=== PATIENT | female | born 1945 | race Caucasian/White ===

== ENCOUNTER 2020-10-22 13:47 | Outpatient (REF) | payer MEDICARE, SELFPAY ==
--- NOTE | ~2020-10-22 | XR_ITS ---
EXAMINATION: XR KNEE, LEFT CLINICAL INFORMATION: Pain COMPARISON: None TECHNIQUE: Four views of the left knee. FINDINGS: Bone alignment is normal. No fracture or dislocation is seen. There are small osteophytes at the patellofemoral joint. The femoral tibial joint is normal.. There is a small joint effusion. XR/XR knee LT 4V IMPRESSION: Mild degenerative changes in all joint effusion.
== END 2020-10-22 13:48 | disposition home or self-care (01) ==
LOC: HO.HMGCX 13:47
PROVIDERS: PCP Internal Medicine; Visit Provider Nurse Practitioner Family
DX: M25.462 Effusion, left knee (principal); M25.562 Pain in left knee
CPT/HCPCS: 73564

== ENCOUNTER 2020-10-22 15:40 | Outpatient (REF) | payer MEDICARE, SELFPAY ==
--- NOTE | ~2020-10-22 | US_ITS ---
EXAMINATION: US VENOUS ULTRASOUND WITH DOPPLER LOWER EXTREMITY, LEFT CLINICAL INFORMATION: Left leg pain and swelling COMPARISON: None TECHNIQUE: Ultrasound of the deep veins is performed from the hip to the calf with compression sonography and color and pulse Doppler assessment. Spectral analysis with color-flow imaging is performed. FINDINGS: There is normal venous compression and respiratory variation and augmented flow. The visualized common femoral vein, superficial femoral vein, profunda femoral vein, popliteal vein, and the trifurcation region shows no evidence of deep venous thrombosis. There is a large complex fluid collection seen in the anterior medial lower thigh. There is a small knee joint effusion. There is a small slightly complex Santos's cyst measuring 3.8 x 1.7 x 1.8 cm. There is left inguinal lymphadenopathy. US/US venous duplex LE LT IMPRESSION: No DVT demonstrated in the left lower extremity. Large fluid collection in the left anterior medial lower thigh. Small left knee joint effusion and Santos's cyst. It is uncertain whether fluid collection could be related to ruptured Santos's cyst. Differential would include old liquefying hematoma, abscess and changes related to trauma. Clinical correlation recommended. This could be better evaluated with MRI of the leg if clinically indicated.
== END 2020-10-22 15:41 | disposition home or self-care (01) ==
LOC: HO.HMGCX 15:40
PROVIDERS: PCP Internal Medicine; Visit Provider Nurse Practitioner Family
DX: M79.605 Pain in left leg (principal); M79.89 Other specified soft tissue disorders
CPT/HCPCS: 93971

== ENCOUNTER 2020-12-02 07:53 | Day surgery (SDC) | payer MEDICARE, SELFPAY ==
[2020-11-25 16:39] VITALS: BMI 28.9
--- NOTE | 2020-11-28 07:47 | MHC.SHP ---
Pre-Procedural Eval Section A The patient is an INPATIENT: No The History & Physical has been completed within 30 days and I have reviewed it.: Yes Section B Chief Complaint: Left Eye Cataract Allergies: Allergies Allergy/AdvReac Type Severity Reaction Status Date / Time naproxen [Aleve] Allergy Severe throat Verified 11/25/20 16:37 swelling Plan Diagnosis/Plan: Unchanged I have reviewed the history and physical and performed a pertinent physical examination on my patient. No changes have occurred unless specified.
--- NOTE | 2020-11-29 09:43 | P.CONAN_ITS ---
Documented by User: Renata Finney 11/29/20 09:44 HPI - Anesthesia Eval Consult details Narrative: 75yo F for Left Cataract Extraction IOL Insertion PCP cleared No prev cataract on record PMFSH Active Problems Active Problems: All Active Problems (Updated 11/25/20 @ 16:42 by Mayte Garrison) Knee pain (Acute) Edema of knee (Acute) Left leg swelling (Acute) Pain in posterior left lower extremity (Acute) Knee effusion (Acute) Cataract (Acute) Hyperlipidemia (Acute) Depression (Acute) Past Medical History Medical History (Updated 11/25/20 @ 16:42 by Mayte Garrison) Abnormal colonoscopy Cataract COVID-19 vaccine series completed Depression History of venomous spider bite Hyperlipidemia Mammogram normal Family History Family History Father Diabetes Stroke Mother Heart problem Daughter Graves disease Surgical History Surgical History (Updated 11/25/20 @ 16:37 by Mayte Garrison) Hx of colonoscopy Social History Social History Patient Tobacco Use Status: Never used Tobacco Use of substances other than those prescribed or required for medical reasons: No Are you DNR?: No Advance Directives: No Advance Directives Information Provided: No Advance Directives on File: No Meds Allergies Allergy/AdvReac Type Severity Reaction Status Date / Time naproxen [Aleve] Allergy Severe throat Verified 11/25/20 16:37 swelling Home Medications Medication Instructions Recorded Confirmed Last Taken Type multivitamin 1 tab PO DAILY 03/14/20 11/25/20 Unknown History PreserVision AREDS 11/25/20 Unknown History coQ10 (ubiquinol) 200 mg PO DAILY 11/25/20 11/25/20 Unknown History vitamin B complex 1 tab PO DAILY 11/25/20 11/25/20 Unknown History Exam Exam Date and Time: November 29, 2020 0943 Height,Weight and Vital Signs: Height 5 ft 2 in Weight 71.668 kg Assessment and Plan Assessment Anesthesia Assessment: Chart Reviewed Documented by User: Luciana Sherwood 12/02/20 09:41 PMFSH Past Medical History Medical History (Updated 11/25/20 @ 16:42 by Mayte Garrison) Abnormal colonoscopy Cataract COVID-19 vaccine series completed Depression History of venomous spider bite Hyperlipidemia Mammogram normal Family History Family History Father Diabetes Stroke Mother Heart problem Daughter Graves disease Surgical History Surgical History (Updated 11/25/20 @ 16:37 by Mayte Garrison) Hx of colonoscopy Social History Social History Patient Tobacco Use Status: Never used Tobacco Use of substances other than those prescribed or required for medical reasons: No Are you DNR?: No Advance Directives: No Advance Directives Information Provided: No Advance Directives on File: No Meds Allergies Allergy/AdvReac Type Severity Reaction Status Date / Time naproxen [Aleve] Allergy Severe throat Verified 11/25/20 16:37 swelling Home Medications Medication Instructions Recorded Confirmed Last Taken Type multivitamin 1 tab PO DAILY 03/14/20 11/25/20 Unknown History PreserVision AREDS 11/25/20 Unknown History coQ10 (ubiquinol) 200 mg PO DAILY 11/25/20 11/25/20 Unknown History vitamin B complex 1 tab PO DAILY 11/25/20 11/25/20 Unknown History Exam Airway Mallampati Class: II ([place] laterally) TM Dist: >3cm Neck ROM: Full Heart: rrr Lungs: cta Assessment and Plan Assessment Anesthesia Assessment: Anesthesia Plan Discussed and Chart Reviewed Final Anesthetic Review NPO: Yes ASA Class: II Final Preanesthetic Review: No Changes in Pt Med Stat and Consent Obtained/Reviewed Patient Risk: Intermediate Procedure Risk: Intermediate Anesthetic Plan Anesthetic Plan: MAC: Disposition: Standard PACU
[2020-12-02 09:34] VITALS: BP 160/57; PULSE 62; RESP 18; TEMP 36.3; O2SAT 96
[2020-12-02] MEDS: Tetracaine HCl/PF 0.5% Oph Sol 4 ML DROPS 1 DROP EYE-LEFT (09:44)
[2020-12-02] MEDS: Tropicamide 1 % Ophth Sol 3 ML BTL 1 DROP EYE-LEFT ×3 (09:45→09:50)
[2020-12-02] MEDS: Lactated Ringers 500 ML 50 ML IV (09:47)
[2020-12-02] MEDS: Phenylephrine HCL 2.5% Oph SoL 2 ML BOTTLE 1 DROP EYE-LEFT ×3 (09:48→09:52)
--- NOTE | 2020-12-02 10:40 | HO.PNOPHT ---
Ophthalmology Procedure Procedure Date of Service: 12/02/20 Ophthalmology Viscoelastic: Healon Duet Dual Pack Pro Ophthalmology Lenses: STEFFANY [id number] (22) Procedure Notes: PREOPERATIVE DIAGNOSIS: Pterygium bilateral eye POSTOPERATIVE DIAGNOSIS: Same PROCEDURE: Pterygium resection with conjunctival graft bilateral eye SURGEON: Narendra Saucedo M.D. ANESTHESIA: Topical with sedation ESTIMATED BLOOD LOSS: None COMPLICATIONS: None After obtaining informed consent, the patient was brought to the operating room suite and placed in supine position. After adequate sedation per Anesthesia, topical drops of Tetracaine were given to both eyes. The eyes were then prepped and draped in the usual sterile fashion. Attention was first directed to the right eye where an additional drop of Tetracaine was given followed by placement of a lid speculum. The operating room microscope was positioned over the right eye. Lidocaine was then injected subconjunctivally below the pterygium, as well as superiorly. Utilizing a combination of sharp and blunt dissection with Alicia scissors, the pterygium was resected from the cornea, as well as the bulbar conjunctiva. Attention was directed superiorly where a conjunctival graft was harvested and placed over the medial aspect in the bed, left where the pterygium was resected from. It was tied in place with 7-0 Vicryl sutures that were interrupted. The superior aspect, where the graft was harvested, was closed with intermittent 7-0 Vicryl sutures as well. Antibiotic ointment was then instilled into the eye. The lid speculum was removed. Attention was directed to the left eye where the lid speculum was placed. Tetracaine was instilled topically, followed by subconjunctival injections of Lidocaine below the pterygium and below the superior conjunctiva where the graft was to be harvested from. Utilizing a combination of sharp and blunt dissection with Alicia scissors, the pterygium was resected from the cornea, as well as the bulbar conjunctiva. A graft was then harvested from the superior site and placed in the conjunctival bed. It was sutured in place with 7-0 Vicryl sutures which were interrupted. Attention was directed superiorly where the graft harvest site was closed with additional 7-0 Vicryl interrupted sutures. Antibiotic ointment was instilled into the cul de sac. The lid speculum was removed. The patient tolerated the procedure well and will be followed up.
--- NOTE | 2020-12-02 10:41 | HO.PNOPHT ---
Ophthalmology Procedure Procedure Date of Service: 12/02/20 Ophthalmology Viscoelastic: Healon Duet Dual Pack Pro Ophthalmology Lenses: TECLAUREN [id number] (22) Procedure Notes: PREOPERATIVE DIAGNOSIS: Decreased visual acuity left eye secondary to cataract POSTOPERATIVE DIAGNOSIS: Same PROCEDURE: Left cataract extraction with intraocular lens insertion SURGEON: Narendra Saucedo M.D. ANESTHESIA: Topical/MAC ESTIMATED BLOOD LOSS: None COMPLICATIONS: None After obtaining informed consent, the patient was brought to the operation room suite and placed in the supine position. After adequate sedation per anesthesia, topical drops of Tetracaine were given to the left eye. The eye was then prepped and draped in the usual sterile fashion. The operating room microscope was then positioned over the operative eye and a lid speculum placed. A paracentesis was created. Viscoelastic was then instilled into the anterior chamber. A three plane incision was then created temporally, utilizing a 2.85 mm keratome. Capsulotomy forceps were then utilized to create a circular tear capsulotomy. Hydrodissection and hydrodelineation were carried out until adequate mobilization of the nucleus occurred. Phacoemulsification was then utilized to remove the dense central nucleus followed by removal of the cortical material utilizing the automated aspiration irrigation unit. Viscoat elastic was instilled into the posterior capsular bag followed by placement of a posterior chamber intraocular lens without difficulty. The residual Viscoat elastic was then removed utilizing the automated IA machine. The wound was check and found to be watertight. The patient tolerated the procedure well and the lid speculum was removed. Intracameral injection of Vigamox 0.1 mL followed by a subtenon injection of Kenalog-40 0.2 mL were administered. The patient will be seen in the a.m.
[2020-12-02 11:06] VITALS: BP 150/45; PULSE 69; RESP 16; TEMP 36.3; O2SAT 100
== END 2020-12-02 11:24 | disposition home or self-care (01) ==
PROVIDERS: PCP Internal Medicine; Visit Provider Ophthalmology
PROC: (CPT 66985; principal; 2020-12-02 10:50)
DX: H25.12 Age-related nuclear cataract, left eye (principal); H52.4 Presbyopia; E78.5 Hyperlipidemia, unspecified
CPT/HCPCS: 66984; J2250; J3010; J3300; V2632

== ENCOUNTER 2020-12-23 06:08 | Day surgery (SDC) | payer MEDICARE, SELFPAY ==
[2020-11-25 16:42] VITALS: BMI 28.9
--- NOTE | 2020-12-19 07:29 | MHC.SHP ---
Pre-Procedural Eval Section A Date of Service: 12/19/20 The patient is an INPATIENT: No The History & Physical has been completed within 30 days and I have reviewed it.: Yes Section B Chief Complaint: Right Eye Cataracts Allergies: Allergies Allergy/AdvReac Type Severity Reaction Status Date / Time naproxen [Aleve] Allergy Severe throat Verified 12/17/20 14:57 swelling Plan Diagnosis/Plan: Unchanged I have reviewed the history and physical and performed a pertinent physical examination on my patient. No changes have occurred unless specified.
--- NOTE | 2020-12-20 09:33 | P.CONAN_ITS ---
Documented by User: Renata Finney 12/20/20 09:34 HPI - Anesthesia Eval Consult details Narrative: 75yo F for Right Cataract Extraction IOL Insertion PCP cleared Left eye 12/02/20: Fent 50, Midaz 1 PMFSH Active Problems Active Problems: All Active Problems (Updated 11/25/20 @ 16:42 by Mayte Garrison) Knee pain (Acute) Edema of knee (Acute) Left leg swelling (Acute) Pain in posterior left lower extremity (Acute) Knee effusion (Acute) Cataract (Acute) Hyperlipidemia (Acute) Depression (Acute) Past Medical History Medical History Abnormal colonoscopy Cataract COVID-19 vaccine series completed Depression History of venomous spider bite Hyperlipidemia Mammogram normal Family History Family History Father Diabetes Stroke Mother Heart problem Daughter Graves disease Surgical History Surgical History Hx of colonoscopy Social History Social History Housing: House Patient Tobacco Use Status: Never used Tobacco e-Cigarette/Vaping Use: Never Used Second Hand Smoke Exposure: No Use of substances other than those prescribed or required for medical reasons: No Are you DNR?: No Advance Directives: No Advance Directives Information Provided: No Advance Directives on File: No service: No Current occupational status: retired [employer] Allergies Allergy/AdvReac Type Severity Reaction Status Date / Time naproxen [Aleve] Allergy Severe throat Verified 12/17/20 14:57 swelling Home Medications Medication Instructions Recorded Confirmed Last Taken Type multivitamin 1 tab PO DAILY 03/14/20 11/25/20 Unknown History PreserVision AREDS 11/25/20 Unknown History coQ10 (ubiquinol) 200 mg PO DAILY 11/25/20 11/25/20 Unknown History vitamin B complex 1 tab PO DAILY 11/25/20 11/25/20 Unknown History Exam Exam Date and Time: December 20, 202033 Height,Weight and Vital Signs: Height 5 ft 2 in Weight 71.668 kg Assessment and Plan Assessment Anesthesia Assessment: Chart Reviewed Documented by User: Elijah Carlson 12/23/20 07:01 [facility] Past Medical History Medical History Abnormal colonoscopy Cataract COVID-19 vaccine series completed Depression History of venomous spider bite Hyperlipidemia Mammogram normal Family History Family History Father Diabetes Stroke Mother Heart problem Daughter Graves disease Surgical History Surgical History Hx of colonoscopy Social History Social History Housing: House Patient Tobacco Use Status: Never used Tobacco e-Cigarette/Vaping Use: Never Used Second Hand Smoke Exposure: No Use of substances other than those prescribed or required for medical reasons: No Are you DNR?: No Advance Directives: No Advance Directives Information Provided: No Advance Directives on File: No service: No Current occupational status: retired Meds Allergies Allergy/AdvReac Type Severity Reaction Status Date / Time naproxen [Aleve] Allergy Severe throat Verified 12/17/20 14:57 swelling Home Medications Medication Instructions Recorded Confirmed Last Taken Type multivitamin 1 tab PO DAILY 03/14/20 11/25/20 Unknown History PreserVision AREDS 11/25/20 Unknown History coQ10 (ubiquinol) 200 mg PO DAILY 11/25/20 11/25/20 Unknown History vitamin B complex 1 tab PO DAILY 11/25/20 11/25/20 Unknown History Exam Airway Mallampati Class: II TM Dist: >3cm Neck ROM: Full Loose/Missing/Broken Teeth: No Heart: rrr+[id number] Lungs: cta b/l Assessment and Plan Assessment Anesthesia Assessment: Anesthesia Plan Discussed, PAT Visit and Chart Reviewed Final Anesthetic Review NPO: Yes ASA Class: II Final Preanesthetic Review: No Changes in Pt Med Stat, Meds/Allgs Chart Reviewed, Consent Obtained/Reviewed and Anes Risks/Benef Reviewed Patient Risk: Low Procedure Risk: Low Assessment/Block/Sedation in SS: Assess/Block/Sedation-SS Anesthetic Plan Anesthetic Plan: MAC: and Agree w/ Assess. and Plan Disposition: Standard PACU
[2020-12-23 06:15] VITALS: BP 132/67; PULSE 80; RESP 18; TEMP 36.1; O2SAT 98
[2020-12-23] MEDS: Tropicamide 1 % Ophth Sol 3 ML BTL 1 DROP EYE-RIGHT ×3 (06:27→06:34)
[2020-12-23] MEDS: Tetracaine HCl/PF 0.5% Oph Sol 4 ML DROPS 1 DROP EYE-RIGHT (06:27)
[2020-12-23] MEDS: Phenylephrine HCL 2.5% Oph SoL 2 ML BOTTLE 1 DROP EYE-RIGHT ×3 (06:28→06:34)
[2020-12-23] MEDS: Lactated Ringers 500 ML 50 ML IV (06:41)
--- NOTE | 2020-12-23 07:04 | PC.NURSE ---
d/c instruction given and explained to pt verbalized understanding of d/c and care of plan
--- NOTE | 2020-12-23 07:56 | HO.PNOPHT ---
Ophthalmology Procedure Procedure Date of Service: 12/23/20 Ophthalmology Viscoelastic: Healandrew [place] Dual Pack Pro Ophthalmology Lenses: TECLAUREN [id number] (20) Procedure Notes: PREOPERATIVE DIAGNOSIS: Decreased visual acuity right eye secondary to cataract POSTOPERATIVE DIAGNOSIS: Same PROCEDURE: Right cataract extraction with intraocular lens insertion SURGEON: Narendra Saucedo M.D. ANESTHESIA: Topical/MAC ESTIMATED BLOOD LOSS: None COMPLICATIONS: None After obtaining informed consent, the patient was brought to the operating room suite and placed in the supine position. After adequate sedation per anesthesia, topical drops of Tetracaine were given to the right eye. The eye was then prepped and draped in the usual sterile fashion. The operating room microscope was then positioned over the operative eye and a lid speculum placed. A paracentesis was created. Viscoelastic was then instilled into the anterior chamber. A three plane incision was then created temporally, utilizing a 2.85 mm keratome. Capsulotomy forceps were then utilized to create a circular tear capsulotomy. Hydrodissection and hydrodelineation were carried out until adequate mobilization of the nucleus occurred. Phacoemulsification was then utilized to remove the dense central nucleus followed by removal of the cortical material utilizing the automated aspiration irrigation unit. Viscoelastic was instilled into the posterior capsular bag followed by placement of a posterior chamber intraocular lens without difficulty. The residual Viscoelastic was then removed utilizing the automated IA machine. The wound was checked and found to be watertight. The patient tolerated the procedure well and the lid speculum was removed. Intracameral injection of Vigamox 0.1 mL followed by a subtenon injection of Kenalog-40 0.2 mL were administered. The patient will be seen in the a.m.
[2020-12-23 08:19] VITALS: BP 134/64; PULSE 66; RESP 16; TEMP 36.6; O2SAT 100
== END 2020-12-23 08:35 | disposition home or self-care (01) ==
PROVIDERS: PCP Internal Medicine; Visit Provider Ophthalmology
PROC: (CPT 66985; principal; 2020-12-23 08:00)
DX: H25.11 Age-related nuclear cataract, right eye (principal); H54.7 Unspecified visual loss; E78.5 Hyperlipidemia, unspecified; Z79.899 Other long term (current) drug therapy
CPT/HCPCS: 66984; J3010; J3300; V2632

== ENCOUNTER 2021-01-23 15:00 | Outpatient (RCR) | payer MEDICARE, SELFPAY ==
--- NOTE | 2020-11-29 10:36 | MHC.PT.EP ---
[facility] [place] Office [place] Office [place] Office [address] [phone] F: [phone] F: [phone] F: [phone] F: [phone] Physical Therapy Plan of Care Date of Evaluation: Date of Surgery: N/A Diagnosis: L Knee Pain Assessment: Caitlin is a 75 y.o female referred to PT for L Knee Pain . On PT examination she presents with mild L knee swelling, decreased B hip strength, decreased L knee extension, decreased B knee strength, postural abnormalities, and gait deviations. She would benefit from PT to address the aforementioned impairments and to improve her tolerance for ADLs such as stair negotiation, walking long distances, gardening, cooking, and cleaning. Recommended 2x a week for 5 weeks. D/t upcoming cataract surgery she will see us 1x next week and then begin 2x per week which may extend her time with PT. Frequency and Duration: The patient will be seen 2x week for 5 weeks. Short Term Goals: 1. In 2 weeks she will have 50% decreased pain to improve her ability for cleaning and dressing. 2. In 3 weeks she will have improved knee ROM to improve her ability for gardening. [facility] Goals: 1. In 5 weeks she will improve LE MMT by 1 grade to improve her ability for stair negotiation and walking long distances. 2. In 5 weeks she will be independent with her HEP for symptom management at home upon d/c. Treatment Plan: Modalities to reduce pain, spasms and effusion. Manual therapy to restore motion and function. Therapeutic exercise to improve strength and flexibility. Neuromuscular re-education for posture and balance. Therapeutic activities to return to functional activities of daily living. Electronically signed by: Tiffany Bowman PT DPT Please sign and return to therapist. Thank you for your referral.
--- NOTE | 2021-01-23 18:22 | MHC.PT.DC ---
[facility] [place] Office [place] Office [place] Office [address] [phone] F: [phone] F: [phone] F: [phone] F: [phone] Physical Therapy Discharge Report Diagnosis: L Knee Pain Date of Surgery: N/A Date of Evaluation: 11/29/20 Date of Discharge: 01/23/21 Treatments to Date: 7 Cancellations to Date: 6 No Shows to Date: 1 Discharge Status: Achieved Goals Improved Function Independent with HEP Discharge Summary: The patient has had little to no pain for several visits now. She reported she notices an improvement in her ability to do activities around her home and garden. She is independent with her home exercise program. The patient is discharged from this physical therapy plan of care at this time. Electronically signed by: Luciana Charles PT, DPT Please sign and return to therapist. Thank you for your referral.
== END 2021-01-23 18:22 | disposition home or self-care (01) ==
LOC: HO.PT 15:00
PROVIDERS: PCP Internal Medicine; Visit Provider Internal Medicine
DX: M25.562 Pain in left knee (principal)
CPT/HCPCS: 97014; 97110; 97112; 97150; 97161

== ENCOUNTER 2021-02-20 08:24 | Outpatient (REF) | payer MEDICARE, SELFPAY ==
[2021-02-20 11:10] LABS: Hematocrit 37.3 % (37-47); Hemoglobin 12.2 g/dl (12.0-16.0); Mean Corpuscular HGB Conc 32.7 g/dl (31.0-35.0); Mean Corpuscular Hemoglobin 29.7 pg (27.0-33.0); Mean Corpuscular Volume 90.8 fL (80-98); Mean Platelet Volume 10.1 fL (9.4-12.3); Platelet Count 181 X10*3/uL (160-400); Red Blood Count 4.11 X10*6/uL (4.20-5.50); Red Cell Distribution Width 13.2 % (11.0-16.0); White Blood Count 5.6 X10*3/uL (4.8-10.8)
[2021-02-20 11:32] LABS: Appearance Urine CLEAR; Color Urine YELLOW; Glucose Urine UA NEG (NEG); Leukocyte Esterase Urine NEG (NEG); Nitrite Urine NEG (NEG); Specific Gravity - Urine 1.015 (1.005-1.025); Urine Blood NEG (NEG); Urine Ketones 15 MG/DL (NEG); Urine Protein NEG (NEG-TRACE)
[2021-02-20 11:53] LABS: Mucus Urine 1+ /LPF; RBC Urine 0 /HPF (0); Squamous Epithelial Cell Urine 1+ /LPF; WBC Urine 0 /HPF (0-4)
[2021-02-20 11:58] LABS: Alanine Aminotransferase < 6 U/L (0-31); Albumin Level 3.9 g/dL (3.5-5.0); Alkaline Phosphatase 47 U/L (39-117); Anion Gap 11 (12-20); Aspartate Amino Transferase 12 U/L (5-31); Bilirubin Total 0.5 mg/dL (0.0-1.0); Blood Urea Nitrogen 11 mg/dL (9-16); Calcium 9.6 mg/dL (8.4-10.2); Carbon Dioxide 26 mmol/L (22-29); Chloride 106 mmol/L (96-108); Cholesterol 144 mg/dL; Estimated Glomerular Filt Rate > 60; Glucose Fasting 91 mg/dL (60-99); HDL Cholesterol 49 mg/dL; LDL Cholesterol Calculated 70 mg/dl; Potassium 3.9 mmol/L (3.3-5.1); Sodium 139 mmol/L (135-145); Total Protein 6.6 g/dL (6.5-8.0); Triglycerides 129 mg/dL
== END 2021-02-20 08:25 | disposition home or self-care (01) ==
LOC: HO.HMGCLDS 08:24
PROVIDERS: PCP Internal Medicine; Visit Provider Internal Medicine
DX: E78.5 Hyperlipidemia, unspecified (principal); H26.9 Unspecified cataract
CPT/HCPCS: 36415; 80053; 80061; 81001; 84443; 85027

== ENCOUNTER 2021-02-25 10:57 | Outpatient (REF) | payer MEDICARE, SELFPAY ==
--- NOTE | ~2021-02-25 | US_ITS ---
EXAMINATION: US ABDOMEN COMPLETE CLINICAL INFORMATION: Abdominal pain. COMPARISON: Previous CT of the abdomen and pelvis July 2011 TECHNIQUE: Real-time imaging of the abdominal viscera. FINDINGS: PANCREAS: The head and body the pancreas are normal. The tail is not well seen due to bowel gas. ABDOMINAL AORTA: No evidence of atherosclerotic disease. The abdominal aorta is normal in caliber. INFERIOR VENA CAVA: Visualized portions are normal. LIVER: Normal. The liver is normal in size. The liver contour is normal. Parenchymal echogenicity is normal. No focal hepatic lesion. There is no intrahepatic biliary duct dilatation seen. GALLBLADDER: The gallbladder is normal in size. There are gallstones in the gallbladder. The gallbladder wall does not appear thickened. There is no pericholecystic fluid. COMMON BILE DUCT: Normal in caliber measuring 0.4 cm in diameter. RIGHT KIDNEY: There is a 1.5 cm peripelvic cyst in the lower pole.. No hydronephrosis. No renal calculi or focal parenchymal lesions. The kidney measures 11 cm in maximum dimension. LEFT KIDNEY: There are peripelvic cysts. The largest measures 1.8 x 1.2 x 1.5 cm. This appears minimally complex cyst with single thin septation or Bosniak 2F. No hydronephrosis. No renal calculi or focal parenchymal lesions. The kidney measures 11 cm in maximum dimension. SPLEEN: Normal. The spleen measures 9.4 cm in maximum dimension. FREE FLUID: None. US/US abdomen complete IMPRESSION: Gallstones. Bilateral renal cysts. Limited visualization of the tail the pancreas.
== END 2021-02-25 10:58 | disposition home or self-care (01) ==
LOC: HO.US 10:57
PROVIDERS: PCP Internal Medicine; Visit Provider Internal Medicine
DX: R10.11 Right upper quadrant pain (principal)
CPT/HCPCS: 76700

== ENCOUNTER 2021-03-01 08:08 | Emergency (ER) | payer MEDICARE, SELFPAY ==
--- NOTE | ~2021-03-01 | CT_ITS ---
EXAMINATION: CT CHEST WITH CONTRAST CLINICAL INFORMATION: Weight loss. Pain. COMPARISON: None TECHNIQUE: Multidetector volumetric CT imaging of the chest was obtained after the administration of 85 mL of Omnipaque 350 intravenous contrast without immediate adverse reactions. Axial MIP volume rendering provided. Sagittal and coronal reformatted images were obtained. This CT examination was performed using dose optimization techniques as appropriate, variously including the following: *Automated exposure control *Adjustment of mA and/or kV according to patient size (this includes techniques or standardized protocols for targeted exams where dose is matched to indication/reason for exam; i.e. extremities or head) *Use of iterative reconstruction technique DLP: 2-3 mGy-cm FINDINGS: LUNGS: The lungs are clear with no evidence of inflammation or nodules. MEDIASTINUM: The heart is upper normal in size. There is a trace pericardial effusion or thickening. The thoracic aorta is normal in caliber. There are no enlarged hilar or mediastinal lymph nodes. The thyroid gland is normal. There may be a small esophageal hernia.. PLEURA: There are trace bilateral pleural effusions. AXILLA: No lymphadenopathy. OSSEOUS STRUCTURES: There are degenerative changes of the spine. CT/CT chest w con IMPRESSION: Upper normal-size heart. Probable small esophageal hernia. Trace bilateral pleural effusions.
--- NOTE | ~2021-03-01 | CT_ITS ---
EXAMINATION: CT ABDOMEN AND PELVIS WITH CONTRAST CLINICAL INFORMATION: Pain and weight loss COMPARISON: Previous CT of the abdomen and pelvis July 2011 and abdominal ultrasound 02/25/2021 TECHNIQUE: Multidetector volumetric images were obtained from the superior aspect of the liver through the pubic symphysis following administration 85 mL of Omnipaque 350 intravenous contrast. Sagittal and coronal reformatted images were obtained on the technologist's workstation. Oral contrast: Yes This CT examination was performed using dose optimization techniques as appropriate, variously including the following: *Automated exposure control *Adjustment of mA and/or kV according to patient size (this includes techniques or standardized protocols for targeted exams where dose is matched to indication/reason for exam; i.e. extremities or head) *Use of iterative reconstruction technique DLP: 440 mGy-cm FINDINGS: There is a small left posterior diaphragmatic hernia containing fat. LIVER, GALLBLADDER, AND BILIARY TREE: The liver is normal in size, shape, and attenuation. No focal hepatic lesion or biliary ductal dilatation is present. The gallbladder is unremarkable with no evidence of radiopaque gallstones, gallbladder wall thickening, or obvious pericholecystic inflammatory changes. PANCREAS: Unremarkable. SPLEEN: Unremarkable. ADRENAL GLANDS: Unremarkable. KIDNEYS AND URETERS: There are bilateral renal peripelvic cysts. The kidneys are otherwise unremarkable. BLADDER: Unremarkable. GASTROINTESTINAL TRACT: There is stool throughout the colon questionable for constipation. The small and large bowel are otherwise unremarkable. The appendix is unremarkable. There is a small esophageal hernia. ABDOMINAL WALL: No significant hernia is appreciated. LYMPH NODES: Normal. VASCULAR: There is evidence of atherosclerotic disease. No aneurysm is seen. PELVIC VISCERA: Unremarkable. OSSEOUS STRUCTURES: There are degenerative changes of the spine. CT/CT abdomen pelvis w con IMPRESSION: Stool throughout the colon questionable for constipation. Bilateral renal peripelvic cysts. Small esophageal hernia.
[2021-03-01 10:12] VITALS: BP 165/62; PULSE 49; RESP 14; TEMP 36.5; O2SAT 96; BMI 23.3
--- NOTE | 2021-03-01 10:16 | ED_ITS ---
HPI - General Adult General Chief complaint: Abdominal Pain Stated complaint: BURNING SENSATIONS WHOLE BODY Time Seen by Provider: 03/01/21 09:08 Source: patient Mode of arrival: ambulatory Limitations: no limitations History of Present Illness MD complaint: weight loss abdominal discomfort burning inside her body Onset (ago): week(s) (2) Location: abdomen Radiation: non-radiation Severity: moderate Quality: burning Pain Consistency: constant Relieving factors: none Exacerbating factors: none Associated symptoms: other (nausea, weight loss, malaise) Treatments prior to arrival: other (saw PCP normal TSH on 02/20, US gallstones but no infection, sent home on pepcid, zofran, atarax no relief) Related Data Home Medications Medication Instructions Recorded Confirmed multivitamin 1 tab PO DAILY 03/14/20 02/28/21 PreserVision AREDS 11/25/20 02/28/21 coQ10 (ubiquinol) 100 mg capsule 200 mg PO DAILY 11/25/20 02/28/21 vitamin B complex 1 tab PO DAILY 11/25/20 02/28/21 Bifidobacterium infantis 4 mg 4 mg PO BEDTIME 02/21/21 02/28/21 capsule (Align) vital reds PO 02/21/21 02/28/21 Previous Rx's Medication Instructions Recorded rosuvastatin 5 mg tablet 5 mg PO DAILY #90 tab 01/14/21 citalopram 20 mg tablet 20 mg PO DAILY #90 tab 02/21/21 famotidine 20 mg tablet (Pepcid) 20 mg PO DAILY #90 tab 02/21/21 hydroxyzine HCl 10 mg tablet 10 mg PO TID PRN #30 tab 02/28/21 ondansetron HCl 4 mg tablet 4 mg PO Q8H PRN #30 tab 02/28/21 (Zofran) lorazepam 1 mg tablet (Ativan) 1 mg PO BID PRN #10 tab 03/01/21 Allergies Allergy/AdvReac Type Severity Reaction Status Date / Time naproxen [Aleve] Allergy Severe throat Verified 02/28/21 10:22 swelling Review of Systems Review of Systems: Constitutional : pos Weight loss, No Fever, No Chills, pos Fatigue, pos Malaise ENT/Mouth : No sore throat, No Rhinorrhea Eyes: No Eye Pain, No Swelling, No Redness Cardiovascular : No Chest Pain, No SOB, No Dyspnea on Exertion, No Orthopnea, No Edema, No Palpitations Respiratory : No Cough, No Sputum, No Wheezing Gastrointestinal : pos Nausea, No Vomiting, No Diarrhea, No Constipation, pos abdominal Pain, No Hematochezia, No Melena Genitourinary : No Dysuria, No Urinary Frequency, No Hematuria, Musculoskeletal : No joint pain, No Myalgias, No Joint Swelling Skin : No Skin Lesions, No rash Neuro : pos Weakness, No Numbness, No Dizziness, No Headache, pos burning sensation of her entire body Psych : No Anxiety/Panic, No Depression Heme/Lymph: No Bruising, No Bleeding,No Lymphadenopathy Endocrine : No Polyuria, No Polydipsia All other systems reviewed and are negative [facility] Past Medical History Attestation statement: The following information was validated with the patient. Medical History Abdominal pain Abnormal colonoscopy Anxiety Cataract COVID-19 vaccine series completed Depression Gallstones History of venomous spider bite Hyperlipidemia Mammogram normal Pruritus Surgical History Hx of colonoscopy Family History Family History Father Diabetes Stroke Mother Heart problem Daughter Graves disease Social History Social History Housing: House Patient Tobacco Use Status: Never used Tobacco e-Cigarette/Vaping Use: Never Used Second Hand Smoke Exposure: No Advance Directives: Yes Advance Directives Information Provided: Yes Advance Directives on File: No service: No Current occupational status: retired Physical Exam Vital Signs: Vital Signs: Last Vital Signs Temp 97.7 F 03/01/21 10:12 Pulse 49 L 03/01/21 10:12 Resp 14 03/01/21 10:12 BP 165/62 H 03/01/21 10:12 Pulse Ox 96 03/01/21 10:12 Body Mass Index 23.3 Appearance: Alert. Oriented X3. No acute distress. Eyes: Pupils equal, round and reactive to light. ENT: Pharynx dry MM Neck: Normal inspection. Neck supple. CVS: Normal heart rate and rhythm. Pulses normal. Respiratory: No respiratory distress. Breath sounds normal. Abdomen: Soft and non-tender. Skin: Skin warm and dry. Normal skin color. Poor skin turgor Extremities: No lower extremity edema. No calf ttp Neuro: Oriented X 3. No motor deficit. No sensory deficit. Course Course Course Narrative: negative workup stable for DC, pending lyme Medical Decision Making [facility] Narrative Medical decision making narrative: 75 yo female pleasant without sig PMH here with 2 weeks of internal burning, nausea and weight loss - at this time it is a very atypical presentation other than signs of dehydration she does not appear toxic and I see no rash. Given her constellation of symptoms will obtain labs, lytes, lyme, CT scans of abdomen/chest for mass, IVF and IV ativan for supportive care. Dispo per results and findings. Lab Data Result diagrams: 03/01/21 10:43 03/01/21 10:43 Labs: Lab Results 03/01/21 03/01/21 03/01/21 Range/Units 10:43 10:43 10:43 WBC 5.6 (4.8-10.8) X10*3/uL RBC 4.33 (4.20-5.50) X10*6/uL Hgb 13.0 (12.0-16.0) g/dl Hct 38.6 (37-47) % MCV 89.1 (80-98) fL MCH 30.0 (27.0-33.0) pg MCHC 33.7 (31.0-35.0) g/dl RDW 12.7 (11.0-16.0) % Plt Count 178 (160-400) X10*3/uL MPV 9.5 (9.4-12.3) fL Immature Gran % (Auto) 0.2 (0.0-0.4) % Neut % (Auto) 77.9 H (45-73) % Lymph % (Auto) 16.3 L (20-40) % [place] % (Auto) 4.8 (2-11) % Eos % (Auto) 0.4 (0-4) % Baso % (Auto) 0.4 (0-2) % Lymph # (Auto) 0.9 L (1.2-4.9) X10*3/uL [place] # (Auto) 0.3 (0.1-1.2) X10*3/uL Eos # (Auto) 0.0 (0.0-0.4) X10*3/uL Baso # (Auto) 0.0 (0.0-0.2) X10*3/uL Abs Immat Gran (auto) 0.01 (0.00-0.03) X10*3/uL Absolute Neuts (auto) 4.4 (2.0-8.3) X10*3/uL Absolute Nucleated RBC 0.000 (0.0-0.012) X10*3/uL Nucleated RBC % (auto) 0.0 (0.0-0.2) /100WBC Sodium 135 (135-145) mmol/L Potassium 4.3 (3.3-5.1) mmol/L Chloride 101 (96-108) mmol/L Carbon Dioxide 27 (22-29) mmol/L Anion Gap 11 L (12-20) BUN 14 (9-16) mg/dL Creatinine 0.67 (0.5-1.4) mg/dL Estim Creat Clear Calc 65.3 Estimated GFR > 60 Random Glucose 91 (60-115) mg/dL Calcium 9.1 (8.4-10.2) mg/dL Magnesium (1.6-2.6) mg/dL Total Bilirubin 0.3 (0.0-1.0) mg/dL Direct Bilirubin 0.2 (0.0-0.5) mg/dL AST 12 (5-31) U/L ALT 13 (0-31) U/L Alkaline Phosphatase 52 (39-117) U/L C-Reactive Protein 0.17 (< or = 0.50) mg/dL Total Protein 6.7 (6.5-8.0) g/dL Albumin 4.1 (3.5-5.0) g/dL Lipase 47 (8-78) U/L COVID-19 (JULIEN) Negative (Negative) COVID-19 Clin Com See Note 03/01/21 Range/Units 10:43 WBC (4.8-10.8) X10*3/uL RBC (4.20-5.50) X10*6/uL Hgb (12.0-16.0) g/dl Hct (37-47) % MCV (80-98) fL MCH (27.0-33.0) pg MCHC (31.0-35.0) g/dl RDW (11.0-16.0) % Plt Count (160-400) X10*3/uL MPV (9.4-12.3) fL Immature Gran % (Auto) (0.0-0.4) % Neut % (Auto) (45-73) % Lymph % (Auto) (20-40) % [place] % (Auto) (2-11) % Eos % (Auto) (0-4) % Baso % (Auto) (0-2) % Lymph # (Auto) (1.2-4.9) X10*3/uL [place] # (Auto) (0.1-1.2) X10*3/uL Eos # (Auto) (0.0-0.4) X10*3/uL Baso # (Auto) (0.0-0.2) X10*3/uL Abs Immat Gran (auto) (0.00-0.03) X10*3/uL Absolute Neuts (auto) (2.0-8.3) X10*3/uL Absolute Nucleated RBC (0.0-0.012) X10*3/uL Nucleated RBC % (auto) (0.0-0.2) /100WBC Sodium (135-145) mmol/L Potassium (3.3-5.1) mmol/L Chloride (96-108) mmol/L Carbon Dioxide (22-29) mmol/L Anion Gap (12-20) BUN (9-16) mg/dL Creatinine (0.5-1.4) mg/dL Estim Creat Clear Calc Estimated GFR Random Glucose (60-115) mg/dL Calcium (8.4-10.2) mg/dL Magnesium 2.3 (1.6-2.6) mg/dL Total Bilirubin (0.0-1.0) mg/dL Direct Bilirubin (0.0-0.5) mg/dL AST (5-31) U/L ALT (0-31) U/L Alkaline Phosphatase (39-117) U/L C-Reactive Protein (< or = 0.50) mg/dL Total Protein (6.5-8.0) g/dL Albumin (3.5-5.0) g/dL Lipase (8-78) U/L COVID-19 (JULIEN) (Negative) COVID-19 Clin Com Discharge Plan Discharge Clinical Impression: Burning pain Patient Disposition: Home, Self-Care Instructions: Acute Nausea and Vomiting (ED), Paresthesia (ED) Additional Instructions: return to ED for any worsening symptoms or concerns lyme test pending if positive we will call you Prescriptions: New lorazepam [Ativan] 1 mg tablet 1 mg PO BID PRN (Reason: nausea and vomiting) Qty: 10 RF: 0 No Action rosuvastatin 5 mg tablet 5 mg PO DAILY Qty: 90 RF: 3 vitamin B complex Tablet 1 tab PO DAILY RF: 0 coQ10 (ubiquinol) 100 mg Capsule 200 mg PO DAILY RF: 0 PreserVision AREDS RF: 0 multivitamin Tablet 1 tab PO DAILY RF: 0 Align 4 mg capsule 4 mg PO BEDTIME RF: 0 vital reds PO RF: 0 famotidine [Pepcid] 20 mg tablet 20 mg PO DAILY Qty: 90 RF: 3 citalopram 20 mg tablet 20 mg PO DAILY Qty: 90 RF: 0 hydroxyzine HCl 10 mg tablet 10 mg PO TID PRN (Reason: itching) Qty: 30 RF: 0 ondansetron HCl [Zofran] 4 mg tablet 4 mg PO Q8H PRN (Reason: nausea and vomiting) Qty: 30 RF: 0 Referrals: Gabbie Perea MD [Primary Care Provider] - 2 days
[2021-03-01 10:50] LABS: MANUAL DIFF FLAG NO
[2021-03-01 11:03] LABS: Basophils Percent Auto 0.4 % (0-2); Eosinophils Percent Auto 0.4 % (0-4); Hematocrit 38.6 % (37-47); Imm Gran Abs Auto 0.01 X10*3/uL (0.00-0.03); Imm Gran Pct Auto 0.2 % (0.0-0.4); Lymphocytes Absolute Auto 0.9 X10*3/uL (1.2-4.9); Lymphocytes Percent Auto 16.3 % (20-40); Mean Corpuscular HGB Conc 33.7 g/dl (31.0-35.0); Mean Corpuscular Volume 89.1 fL (80-98); Mean Platelet Volume 9.5 fL (9.4-12.3); Monocytes Absolute Auto 0.3 X10*3/uL (0.1-1.2); Monocytes Percent Auto 4.8 % (2-11); Neutrophils Absolute Auto 4.4 X10*3/uL (2.0-8.3); Neutrophils Percent Auto 77.9 % (45-73); Platelet Count 178 X10*3/uL (160-400); Red Blood Count 4.33 X10*6/uL (4.20-5.50); Red Cell Distribution Width 12.7 % (11.0-16.0); White Blood Count 5.6 X10*3/uL (4.8-10.8)
[2021-03-01 11:06] LABS: COVID-19 Test Negative (Negative)
[2021-03-01 11:12] LABS: Magnesium 2.3 mg/dL (1.6-2.6)
[2021-03-01 11:14] LABS: Alanine Aminotransferase 13 U/L (0-31); Albumin Level 4.1 g/dL (3.5-5.0); Alkaline Phosphatase 52 U/L (39-117); Anion Gap 11 (12-20); Aspartate Amino Transferase 12 U/L (5-31); Bilirubin Direct 0.2 mg/dL (0.0-0.5); Bilirubin Total 0.3 mg/dL (0.0-1.0); Blood Urea Nitrogen 14 mg/dL (9-16); C Reactive Protein 0.17 mg/dL (< or = 0.50); Calcium 9.1 mg/dL (8.4-10.2); Carbon Dioxide 27 mmol/L (22-29); Chloride 101 mmol/L (96-108); Creatinine Clr Calc Pharmacy 65.3; Estimated Glomerular Filt Rate > 60; Glucose Random 91 mg/dL (60-115); Lipase 47 U/L (8-78); Potassium 4.3 mmol/L (3.3-5.1); Sodium 135 mmol/L (135-145); Total Protein 6.7 g/dL (6.5-8.0)
[2021-03-01] MEDS: 0.9 % Sodium Chloride 1,000 ML 999 ML IVCONT (11:38)
[2021-03-01] MEDS: LORazepam 2 MG/ML VIAL 1 MG IVPUSH (11:38)
[2021-03-01] MEDS: iohexoL 350 MG/ML 100 ML INFUS..BTL IV (11:58)
[2021-03-01 13:04] VITALS: BP 118/56; PULSE 57; RESP 14; O2SAT 100
[2021-03-04 06:12] LABS: Lyme Blot 7.48 index
[2021-03-04 08:45] LABS: Lyme Abs Screen POSITIVE
[2021-03-04 16:01] LABS: 18 KD (IgG) Band REACTIVE; 23 KD (IgG) Band NON-REACTIVE; 23 KD (IgM) Band REACTIVE; 28 KD (IgG) Band REACTIVE; 30 KD (IgG) Band REACTIVE; 39 KD (IgM) Band REACTIVE; 41 KD (IgM) Band REACTIVE; 45 KD (IgG) Band REACTIVE; 58 KD (IgG) Band REACTIVE; 66 KD (IgG) Band REACTIVE; 93 KD (IgG) Band REACTIVE; Lyme IgG Blot Interp POSITIVE (NEGATIVE); Lyme IgM Blot Interp POSITIVE (NEGATIVE)
== END 2021-03-01 13:05 | disposition home or self-care (01) ==
PROVIDERS: Emergency Provider Emergency Medicine; PCP Internal Medicine
DX: M79.10 Myalgia, unspecified site (principal); R63.4 Abnormal weight loss; R10.9 Unspecified abdominal pain; Z20.822 Contact with and (suspected) exposure to COVID-19; Z79.899 Other long term (current) drug therapy
CPT/HCPCS: 36415; 71260; 74177; 80048; 80076; 83690; 83735; 85025; 86140; 86617; 86618; 87635; 96361; 96374; 99284; J2060; Q9967

== ENCOUNTER → 2021-03-06 11:01 | Outpatient (BNVA) | payer MEDICARE, SELFPAY | PROVIDERS: PCP Internal Medicine; Visit Provider Surgery | DX: K80.20 Calculus of gallbladder without cholecystitis without obstruction (principal) | CPT/HCPCS: 99202 ==

== ENCOUNTER 2021-03-21 15:14 | Outpatient (REF) | payer MEDICARE, SELFPAY ==
[2021-03-21 17:16] LABS: Vitamin B12 315 pg/mL (200-900)
== END 2021-03-21 15:15 | disposition home or self-care (01) ==
LOC: HO.HMGCLDS 15:14
PROVIDERS: PCP Internal Medicine; Visit Provider Internal Medicine
DX: E53.8 Deficiency of other specified B group vitamins (principal); A69.20 Lyme disease, unspecified
CPT/HCPCS: 36415; 82607

== ENCOUNTER → 2021-04-01 14:52 | Outpatient (BNVA) | payer MEDICARE, SELFPAY | PROVIDERS: PCP Internal Medicine; Visit Provider Internal Medicine | DX: R52 Pain, unspecified (principal) | CPT/HCPCS: 99202 ==

== ENCOUNTER 2021-10-02 13:31 | Outpatient (REF) | payer MEDICARE, SELFPAY ==
--- NOTE | ~2021-10-02 | MM_ITS ---
EXAMINATION: MM SCREENING DIGITAL BREAST TOMOSYNTHESIS, BILATERAL CLINICAL INFORMATION: Screening. Asymptomatic. The lifetime risk of breast cancer based on the Tyrer-Cuzick Model is 6.0%. COMPARISON: Mammography: February 29, 2020 and studies dating back to December 01, 2013 TECHNIQUE: Digital breast tomosynthesis is performed in both the craniocaudal and mediolateral oblique views along with computer-aided detection (CAD). Synthesized 2D images are generated from the tomosynthesis. FINDINGS: There are scattered areas of fibroglandular density (ACR BI-RADS breast composition Category b). There are no significant masses, abnormal calcifications, or other abnormalities. MM/MM tomosynthesis screening BI IMPRESSION: There are no significant changes from prior study. ASSESSMENT: BI-RADS 1: Negative RECOMMENDATION: Routine annual mammography screening. This patient's information was entered into a reminder system with a target due date for their next mammogram.
== END 2021-10-02 13:32 | disposition home or self-care (01) ==
LOC: HO.MAMMO 13:31
PROVIDERS: Visit Provider Internal Medicine
DX: Z12.31 Encounter for screening mammogram for malignant neoplasm of breast (principal)
CPT/HCPCS: 77063; 77067

== ENCOUNTER 2021-12-08 08:32 | Outpatient (REF) | payer MEDICARE, SELFPAY ==
[2021-12-08 11:46] LABS: Hematocrit 38.8 % (37.0-47.0); Hemoglobin 12.8 g/dl (12.0-16.0); Mean Corpuscular Hemoglobin 30.1 pg (27.0-33.0); Mean Corpuscular Volume 91.3 fL (80.0-98.0); Mean Platelet Volume 9.6 fL (9.4-12.3); Platelet Count 182 X10*3/uL (160-400); Red Blood Count 4.25 X10*6/uL (4.20-5.50); Red Cell Distribution Width 13.1 % (11.0-16.0); White Blood Count 3.3 X10*3/uL (4.8-10.8)
[2021-12-08 12:31] LABS: Folate > 20.0 ng/mL (> or = 4.0); Vitamin B12 429 pg/mL (200-900)
[2021-12-08 12:34] LABS: TSH reflex Free T4 1.46 uIU/mL (0.32-4.0); Vitamin D 25-OH Total 34.4 ng/mL (>30)
[2021-12-08 12:39] LABS: Alanine Aminotransferase 13 U/L (0-31); Albumin Level 4.5 g/dL (3.5-5.0); Alkaline Phosphatase 54 U/L (39-117); Anion Gap 13 (12-20); Aspartate Amino Transferase 16 U/L (5-31); Bilirubin Total 0.9 mg/dL (0.0-1.0); Blood Urea Nitrogen 12 mg/dL (9-16); Calcium 9.5 mg/dL (8.4-10.2); Carbon Dioxide 27 mmol/L (22-29); Chloride 104 mmol/L (96-108); Cholesterol 191 mg/dL; Estimated Glomerular Filt Rate > 60; Glucose Fasting 91 mg/dL (60-99); HDL Cholesterol 72 mg/dL; LDL Cholesterol Calculated 105 mg/dl; Potassium 3.8 mmol/L (3.3-5.1); Sodium 140 mmol/L (135-145); Triglycerides 71 mg/dL
== END 2021-12-08 08:33 | disposition home or self-care (01) ==
LOC: HO.HMGCLDS 08:32
PROVIDERS: Visit Provider Internal Medicine
DX: E53.8 Deficiency of other specified B group vitamins (principal); E55.9 Vitamin D deficiency, unspecified; E78.5 Hyperlipidemia, unspecified
CPT/HCPCS: 36415; 80053; 80061; 82306; 82607; 82746; 84443; 85027

== ENCOUNTER 2022-07-14 12:58 | Outpatient (REF) | payer MEDICARE, SELFPAY ==
[2022-07-14 13:17] LABS: MANUAL DIFF FLAG NO
[2022-07-14 13:49] LABS: Basophils Percent Auto 0.5 % (0-2); Eosinophils Absolute Auto 0.1 X10*3/uL (0.0-0.4); Eosinophils Percent Auto 1.3 % (0-4); Hematocrit 38.4 % (37.0-47.0); Hemoglobin 12.9 g/dl (12.0-16.0); Imm Gran Abs Auto 0.02 X10*3/uL (0.00-0.03); Imm Gran Pct Auto 0.5 % (0.0-0.4); Lymphocytes Absolute Auto 0.8 X10*3/uL (1.2-4.9); Lymphocytes Percent Auto 21.1 % (20-40); Mean Corpuscular HGB Conc 33.6 g/dl (31.0-35.0); Mean Corpuscular Hemoglobin 30.9 pg (27.0-33.0); Mean Corpuscular Volume 91.9 fL (80.0-98.0); Mean Platelet Volume 9.2 fL (9.4-12.3); Monocytes Absolute Auto 0.3 X10*3/uL (0.1-1.2); Monocytes Percent Auto 7.4 % (2-11); Neutrophils Absolute Auto 2.6 x10*3/uL (2.0-8.3); Neutrophils Percent Auto 69.2 % (45-73); Platelet Count 204 X10*3/uL (160-400); Red Blood Count 4.18 X10*6/uL (4.20-5.50); Red Cell Distribution Width 12.8 % (11.0-16.0); White Blood Count 3.8 X10*3/uL (4.8-10.8)
[2022-07-14 14:31] LABS: Alanine Aminotransferase 13 U/L (0-31); Albumin Level 4.3 g/dL (3.5-5.0); Alkaline Phosphatase 64 U/L (39-117); Anion Gap 11 (12-20); Aspartate Amino Transferase 13 U/L (5-31); Bilirubin Total 0.4 mg/dL (0.0-1.0); Blood Urea Nitrogen 12 mg/dL (9-16); C Reactive Protein < 0.04 mg/dL (< or = 0.50); Calcium 9.5 mg/dL (8.4-10.2); Carbon Dioxide 30 mmol/L (22-29); Chloride 101 mmol/L (96-108); Estimated Glomerular Filt Rate > 60; Glucose Random 85 mg/dL (60-115); Potassium 4.4 mmol/L (3.3-5.1); Sodium 138 mmol/L (135-145); Total Protein 6.6 g/dL (6.5-8.0)
[2022-07-14 14:39] LABS: Erythrocyte Sedimentation Rate 16 MM/HR (0-20)
[2022-07-14 14:55] LABS: Thyroid Stimulating Hormone 0.81 uIU/mL (0.32-4.0); Vitamin B12 354 pg/mL (200-900); Vitamin D 25-OH Total 26.2 ng/mL (>30)
[2022-07-16 22:24] LABS: Gliadin Deamidated IgA Ab <1.0 U/mL; Gliadin Deamidated IgG Ab <1.0 U/mL; Transglutaminase IgA <1.0 U/mL
== END 2022-07-14 12:59 | disposition home or self-care (01) ==
LOC: HO.LAB 12:58
PROVIDERS: PCP Internal Medicine; Visit Provider Nurse Practitioner Family
DX: G93.32 Myalgic encephalomyelitis/chronic fatigue syndrome (principal); L65.9 Nonscarring hair loss, unspecified; D51.9 Vitamin B12 deficiency anemia, unspecified; G31.84 Mild cognitive impairment of uncertain or unknown etiology; R19.7 Diarrhea, unspecified; A69.20 Lyme disease, unspecified; E55.9 Vitamin D deficiency, unspecified
CPT/HCPCS: 36415; 80053; 82306; 82607; 84443; 85025; 85652; 86140; 86258; 86364

== ENCOUNTER 2022-09-15 08:45 | Outpatient (REF) | payer MEDICARE, SELFPAY ==
[2022-09-15 09:09] LABS: MANUAL DIFF FLAG NO
[2022-09-15 09:33] LABS: Basophils Percent Auto 0.7 % (0-2); Eosinophils Absolute Auto 0.1 X10*3/uL (0.0-0.4); Hemoglobin 13.3 g/dl (12.0-16.0); Imm Gran Abs Auto 0.01 X10*3/uL (0.00-0.03); Imm Gran Pct Auto 0.3 % (0.0-0.4); Mean Corpuscular HGB Conc 33.3 g/dl (31.0-35.0); Mean Corpuscular Hemoglobin 29.8 pg (27.0-33.0); Mean Corpuscular Volume 89.5 fL (80.0-98.0); Mean Platelet Volume 8.5 fL (9.4-12.3); Monocytes Absolute Auto 0.3 X10*3/uL (0.1-1.2); Monocytes Percent Auto 9.2 % (2-11); Neutrophils Absolute Auto 1.7 x10*3/uL (2.0-8.3); Neutrophils Percent Auto 56.8 % (45-73); Platelet Count 231 X10*3/uL (160-400); Red Blood Count 4.47 X10*6/uL (4.20-5.50); Red Cell Distribution Width 12.5 % (11.0-16.0); White Blood Count 3.1 X10*3/uL (4.8-10.8)
[2022-09-15 09:58] LABS: Alanine Aminotransferase 11 U/L (0-31); Albumin Level 4.3 g/dL (3.5-5.0); Alkaline Phosphatase 73 U/L (39-117); Anion Gap 11 (12-20); Aspartate Amino Transferase 13 U/L (5-31); Bilirubin Total 0.6 mg/dL (0.0-1.0); Blood Urea Nitrogen 12 mg/dL (9-16); Calcium 9.2 mg/dL (8.4-10.2); Carbon Dioxide 29 mmol/L (22-29); Chloride 98 mmol/L (96-108); Cholesterol 227 mg/dL; Estimated Glomerular Filt Rate > 60; Glucose Fasting 86 mg/dL (60-99); HDL Cholesterol 69 mg/dL; LDL Cholesterol Calculated 144 mg/dl; Potassium 4.4 mmol/L (3.3-5.1); Sodium 134 mmol/L (135-145); Total Protein 6.6 g/dL (6.5-8.0); Triglycerides 72 mg/dL
[2022-09-15 10:19] LABS: Vitamin B12 477 pg/mL (200-900); Vitamin D 25-OH Total 31.3 ng/mL (>30)
== END 2022-09-15 08:46 | disposition home or self-care (01) ==
LOC: HO.LAB 08:45
PROVIDERS: PCP Internal Medicine; Visit Provider Internal Medicine
DX: E53.8 Deficiency of other specified B group vitamins (principal); G62.9 Polyneuropathy, unspecified; E55.9 Vitamin D deficiency, unspecified; E78.5 Hyperlipidemia, unspecified
CPT/HCPCS: 36415; 80053; 80061; 82306; 82607; 84443; 85025

== ENCOUNTER 2022-10-08 13:49 | Outpatient (REF) | payer MEDICARE, SELFPAY ==
--- NOTE | ~2022-10-08 | MM_ITS ---
EXAMINATION: MM SCREENING DIGITAL BREAST TOMOSYNTHESIS, BILATERAL CLINICAL INFORMATION: Screening. Asymptomatic. The lifetime risk of breast cancer based on the Tyrer-Cuzick Model is 5%. COMPARISON: Mammography: 10/02/2021, 02/29/2020, 09/13/2018 TECHNIQUE: Digital breast tomosynthesis is performed in both the craniocaudal and mediolateral oblique views along with computer-aided detection (CAD). Synthesized 2D images are generated from the tomosynthesis. FINDINGS: There are scattered areas of fibroglandular density (ACR BI-RADS breast composition Category b). There are no significant masses, abnormal calcifications, or other abnormalities. Parenchymal pattern is similar to prior studies. There is no developing density or architectural abnormality. The axilla and skin contours are unremarkable. No significant changes. MM/MM tomosynthesis screening BI IMPRESSION: No mammographic evidence of malignancy. ASSESSMENT: BI-RADS 1: Negative RECOMMENDATION: Routine annual mammography screening. This patient's information was entered into a reminder system with a target due date for their next mammogram.
== END 2022-10-08 13:50 | disposition home or self-care (01) ==
LOC: HO.MAMMO 13:49
PROVIDERS: PCP Internal Medicine; Visit Provider Internal Medicine
DX: Z12.31 Encounter for screening mammogram for malignant neoplasm of breast (principal)
CPT/HCPCS: 77063; 77067

== ENCOUNTER 2023-03-17 10:24 | Outpatient (AMB) | payer MEDICARE, SELFPAY ==
[2023-03-17 10:29] VITALS: BP 110/66; PULSE 77; O2SAT 97; BMI 26.9
--- NOTE | 2023-03-17 10:29 | MHC.PC.OV ---
Vital Signs 03/17/23 10:29 Height 5 ft 2 in Weight 147 lb BMI 26.9 BP 110/66 Blood Pressure Location Lt brachial Position Sitting Pulse 77 Pulse Source Pulse Oximeter Pulse Oximetry (%) 97 Oxygen Delivery Method Room Air Intake Visit Reasons: Annual PE/HTN Intake Note: Pt is here today for PE. Allergies naproxen [Aleve] Allergy (Severe, Verified 03/17/23 10:34) throat swelling Medication List - Last Reconciled 03/17/23 by Gabbie Perea MD Bifidobacterium infantis (Align) 4 mg PO BEDTIME cariprazine (Vraylar) 1.5 mg PO DAILY coQ10 (ubiquinol) 200 mg PO DAILY duloxetine 30 mg PO BID multivitamin 1 tab PO DAILY [PreserVision AREDS ] rosuvastatin 5 mg PO DAILY vitamin B complex 1 tab PO DAILY Tobacco use date assessed: 03/17/23 Dental Screening Dental Screen Date: 03/17/23 Did you have a dental visit in the last 12 months?: Yes Did you have a dental problem in the last 6 months where you did not have access to dental care?: No Was dental information given to patient?: Patient has dentist HPI Annual PE/HTN HPI Details Pt presents for PE. She follows up with Psychiatric Nurse prescriber for depression and anxiety according to patient not well controlled on current medications. She has not been seeing counselor. She denies suicidal ideation or recent hospitalization [facility] Medical History Vitamin D deficiency Burning pain Neuropathy Vitamin B 12 deficiency Lyme disease Pruritus Gallstones Abdominal pain Anxiety COVID-19 vaccine series completed History of venomous spider bite Cataract Abnormal colonoscopy Mammogram normal Depression Hyperlipidemia Surgical History Hx of colonoscopy Family History Father Diabetes Stroke Mother Heart problem History of breast cancer Daughter Graves disease Social History Housing: House Patient Tobacco Use Status: Never used Tobacco e-Cigarette/Vaping Use: Never Used Second Hand Smoke Exposure: No service: No Current occupational status: retired Cognitive needs: No Hearing needs: No Vision needs: Yes Questionnaire Thrive Questionnaire Date Thrive assessed: 09/14/22 ALICE-7 AMB Questionnaire ALICE-7 Date ALICE - 7 assessed: 09/14/22 Source: Developed by DrsJosué Quinn, Rosie Shields, Homar Rain and colleagues, with an educational tereso from [employer]. Review of Systems Const All systems reviewed & are unremarkable except as noted in HPI and below Reports no additional complaints Eyes Reports no additional complaints ENT Reports no additional complaints Card Reports no additional complaints Resp Reports no additional complaints GI Reports no additional complaints Reports no additional complaints Musc Reports no additional complaints Physical exam (Primary Care) Vital Signs: Last Vital Signs Pulse 77 03/17/23 10:29 BP 110/66 03/17/23 10:29 Pulse Ox 97 03/17/23 10:29 Oxygen Delivery Method Room Air 03/17/23 10:29 BMI result Body Mass Index 26.9 Tobacco/Smoking Status: Tobacco use Status Tobacco use date assessed 03/17/23 03/17/23 10:38 Patient Tobacco Use Status Never used Tobacco 03/17/23 10:38 e-Cigarette/Vaping Use Never Used 03/17/23 10:29 Thrive Assessment: Date of Thrive Assessment Date Thrive assessed 09/14/22 03/17/23 10:29 Const General: no acute distress and tired appearing HENMT Head: Yes normal to inspection Ears: hearing grossly normal bilaterally Face and sinus: Yes normal facial exam Throat: Yes posterior oropharynx normal Neck Neck: Yes no lymphadenopathy and Yes supple Resp Effort & Inspection: normal respiratory effort Auscultation: clear to auscultation bilaterally Cardio Rhythm: regular rhythm Heart sounds: S1 normal heart sound present and S2 normal heart sound present GI Inspection: Yes normal to inspection Palpation (GI): Soft to palpation Percussion: Yes normal to percussion Auscultation: normal bowel sounds Assessment and Plan Assessment & Plan (1) Hyperlipidemia: Comment: cont Crestor Code(s): E78.5 - Hyperlipidemia, unspecified Plan: Continue Crestor return for fasting labs (2) Depression: Comment: cont Citalopram, Code(s): F32.9 - Major depressive disorder, single episode, unspecified Plan: Follow-up with Psychiatry, counseling and medication adjustment was recommended (3) Vitamin D deficiency: Code(s): E55.9 - Vitamin D deficiency, unspecified Plan: Continue vitamin-D supplement Orders: Orders Lipid Panel Today E78.5 - Hyperlipidemia, unspecified, F32.9 - Major depressive disorder, single episode, unspecified Vitamin D 25-OH Total Today E55.9 - Vitamin D deficiency, unspecified, E78.5 - Hyperlipidemia, unspecified Comprehensive Commodore. Panel Fast Today E78.5 - Hyperlipidemia, unspecified, F32.9 - Major depressive disorder, single episode, unspecified Complete Blood Count Auto Diff Today E78.5 - Hyperlipidemia, unspecified, F32.9 - Major depressive disorder, single episode, unspecified TSH reflex Free T4 Today E55.9 - Vitamin D deficiency, unspecified, E78.5 - Hyperlipidemia, unspecified Coding Level of Care Code Est Pt Prev Care >65y(10726) Diagnoses Hyperlipidemia E78.5 Depression F32.9 Vitamin D deficiency E55.9
== END 2023-03-17 12:57 | disposition home or self-care (01) ==
PROVIDERS: Visit Provider Internal Medicine
DX: Z00.00 Encounter for general adult medical examination without abnormal findings (principal); E78.5 Hyperlipidemia, unspecified; F32.9 Major depressive disorder, single episode, unspecified; E55.9 Vitamin D deficiency, unspecified
CPT/HCPCS: 99397

== ENCOUNTER 2023-04-15 07:13 | Outpatient (REF) | payer MEDICARE, SELFPAY ==
[2023-04-15 07:24] LABS: MANUAL DIFF FLAG NO
[2023-04-15 08:08] LABS: Basophils Percent Auto 0.5 % (0-2); Eosinophils Absolute Auto 0.1 X10*3/uL (0.0-0.4); Eosinophils Percent Auto 1.3 % (0-4); Hematocrit 41.8 % (37.0-47.0); Hemoglobin 13.5 g/dl (12.0-16.0); Imm Gran Abs Auto 0.01 X10*3/uL (0.00-0.03); Imm Gran Pct Auto 0.3 % (0.0-0.4); Lymphocytes Absolute Auto 1.1 X10*3/uL (1.2-4.9); Mean Corpuscular HGB Conc 32.3 g/dl (31.0-35.0); Mean Corpuscular Hemoglobin 29.5 pg (27.0-33.0); Mean Corpuscular Volume 91.5 fL (80.0-98.0); Mean Platelet Volume 9.1 fL (9.4-12.3); Monocytes Absolute Auto 0.4 X10*3/uL (0.1-1.2); Monocytes Percent Auto 9.7 % (2-11); Neutrophils Absolute Auto 2.2 x10*3/uL (2.0-8.3); Neutrophils Percent Auto 58.2 % (45-73); Platelet Count 180 X10*3/uL (160-400); Red Blood Count 4.57 X10*6/uL (4.20-5.50); Red Cell Distribution Width 12.7 % (11.0-16.0); White Blood Count 3.8 X10*3/uL (4.8-10.8)
[2023-04-15 08:30] LABS: Alanine Aminotransferase 12 U/L (0-31); Albumin Level 4.3 g/dL (3.5-5.0); Alkaline Phosphatase 62 U/L (39-117); Anion Gap 12 (12-20); Aspartate Amino Transferase 15 U/L (5-31); Bilirubin Total 0.5 mg/dL (0.0-1.0); Blood Urea Nitrogen 15 mg/dL (9-16); Calcium 9.7 mg/dL (8.4-10.2); Carbon Dioxide 28 mmol/L (22-29); Chloride 105 mmol/L (96-108); Cholesterol 260 mg/dL (<200); Estimated Glomerular Filt Rate > 60; Glucose Fasting 91 mg/dL (60-99); HDL Cholesterol 58 mg/dL (>40); LDL Cholesterol Calculated 176 mg/dL (<100); Potassium 3.9 mmol/L (3.3-5.1); Sodium 141 mmol/L (135-145); Total Protein 7.2 g/dL (6.5-8.0); Triglycerides 131 mg/dL (<150)
[2023-04-15 08:47] LABS: TSH reflex Free T4 1.62 uIU/mL (0.32-4.0); Vitamin D 25-OH Total 25.5 ng/mL (>30)
== END 2023-04-15 07:14 | disposition home or self-care (01) ==
LOC: HO.LAB 07:13
PROVIDERS: PCP Internal Medicine; Visit Provider Internal Medicine
DX: E78.5 Hyperlipidemia, unspecified (principal); F32.9 Major depressive disorder, single episode, unspecified; E55.9 Vitamin D deficiency, unspecified
CPT/HCPCS: 36415; 80053; 80061; 82306; 84443; 85025

== ENCOUNTER 2023-11-13 00:05 | Emergency (ER) | payer MEDICARE, SELFPAY ==
--- NOTE | ~2023-11-13 | XR_ITS ---
EXAMINATION: XR RIBS, RIGHT CLINICAL INFORMATION: Pain after fall COMPARISON: 03/01/2021 TECHNIQUE: 3 views of the right ribs were obtained. PA view of the chest. FINDINGS: No displaced rib fracture is seen. The lungs are clear with no focal consolidation. No evidence of pneumothorax, pulmonary edema, or pleural effusions. Cardiac size is within normal limits. Calcification is present at the aortic arch. XR/XR ribs RT min 3V w CXR1V IMPRESSION: No displaced rib fracture identified. No acute cardiopulmonary findings.
--- NOTE | ~2023-11-13 | CT_ITS ---
EXAMINATION: NONCONTRAST HEAD CT NONCONTRAST CERVICAL SPINE CT INDICATION INFORMATION: Fall with head strike COMPARISON: None TECHNIQUE: Separate noncontrast CT examinations of the head and cervical spine were performed. Coronal head CT images and coronal and sagittal cervical spine images were created at the technologist workstation. DLP: 638, 391 mGy-cm DOSE LOWERING TECHNIQUES: This CT examination was performed using dose optimization techniques as appropriate, variously including the following: - Automated exposure control - Adjustment of mA and/or kV according to patient size (this includes techniques or standardized protocols for targeted exams were dose is matched to indication/reason for exam; i.e. extremities or head) - Use of iterative reconstruction technique FINDINGS: Head: There is no evidence of acute intracranial hemorrhage or territorial infarction. No abnormal mass-effect or midline shift is seen. García to white matter differentiation is well preserved. No extra-axial fluid collections are identified. The ventricles are normal in size. There is mild periventricular white matter hypoattenuation consistent with chronic small vessel ischemic disease. Small chronic appearing bilateral lacunar infarcts in the basal ganglia. There is mild periventricular white matter hypoattenuation consistent with chronic small vessel ischemic disease. Frontal scalp soft tissue swelling is noted. Soft tissue gas noted in the right frontal scalp. No acute fracture is seen. The mastoid air cells and visualized portions of the paranasal sinuses are well-aerated. Cervical spine: There is degenerative change at the atlantodens articulation. There is anatomic alignment of the vertebral bodies and posterior elements. Vertebral body heights are maintained. There is ankylosis at C2-C3. There is disc space narrowing and endplate osteophyte formation in the lower cervical spine. Scattered moderate severe bilateral facet arthropathy. No evidence of acute fracture. No prevertebral soft tissue swelling. Visualized portions of the lung apices are unremarkable. The thyroid gland is unremarkable. CT/CT cervical spine wo IV con IMPRESSION: HEAD: No acute intracranial findings. Frontal scalp soft tissue injury. CERVICAL SPINE: No acute findings identified. Degenerative changes as noted above.
[2023-11-13 00:13] VITALS: BP 123/56; PULSE 72; RESP 16; TEMP 36.4; O2SAT 97; BMI 27.4
--- NOTE | 2023-11-13 00:20 | ECG_ITS ---
Test Reason : FALL Blood Pressure : / mmHG Vent. Rate : 063 BPM Atrial Rate : 063 BPM P-R Int : 214 ms QRS Dur : 088 ms QT Int : 444 ms P-R-T Axes : 048 014 101 degrees QTc Int : 454 ms Sinus rhythm with 1st degree A-V block Cannot rule out Inferior infarct , age undetermined Abnormal ECG No previous ECGs available Referred By: Generic ED Physician Electronically Signed By:GEORGE ZHOU
--- NOTE | 2023-11-13 00:35 | ED.FALL ---
HPI - Fall General Chief Complaint: Fall Stated Complaint: fell in the kitchen hit her head Time Seen by Provider: 11/13/23 00:35 Source: patient Mode of arrival: ambulatory Limitations: no limitations History of Present Illness ED Provider: Jaret Castillo PA-C HPI Narrative: 70-year-old female with history of anxiety, depression, neuropathy, HLD, gallstones, Lyme disease who presents to the ER from home for evaluation of a fall in her kitchen resulting in a head strike. She states she has not been feeling well today and vomited 3 times at home. She also had 1 episode of diarrhea. She feels like it was attributed to eating a tuna sandwich. She reports that around 04 12 11:00 o'clock this evening she vomited in the kitchen, was headache to the bathroom when the next thing she remembers she was on the floor. She states there was a lot of blood and she hit her head. She has not know how long she was on the floor for. She was able to get up on her own and go wake up her . She noticed a large laceration on her right forehead prompting ER evaluation. She has not on anticoagulation. No history of frequent falls. He had no preceding chest pain or dizziness. No history of syncopal episodes in the past Of note patient admits to worsening depression lately. She recently has been only intermittently taking her Cymbalta and Vraylar. He has a psychiatric nurse practitioner that she follows with. She does not have therapist. She has not suicidal or homicidal. She lives there who has noticed worsening depression as well. She has never been hospitalized for this. complaint: fall Onset (ago): hour(s) (2) Fall from: standing Fall witnessed: no Place fall occurred: home Loss of consciousness: unsure Prolonged down time: unclear Symptoms prior to fall: none Location of injury: head Severity: mild Severity scale (1-10): 3 Quality: aching Associated symptoms (after fall): headache Related Data Home Medications ?Medication ?Instructions ?Recorded ?Confirmed multivitamin 1 tab PO DAILY 03/14/20 03/17/23 PreserVision AREDS 11/25/20 03/17/23 coQ10 (ubiquinol) 100 mg capsule 200 mg PO DAILY 11/25/20 03/17/23 vitamin B complex 1 tab PO DAILY 11/25/20 03/17/23 Bifidobacterium infantis 4 mg 4 mg PO BEDTIME 02/21/21 03/17/23 capsule (Align) duloxetine 30 mg capsule,delayed 30 mg PO BID 09/14/22 03/17/23 release cariprazine 1.5 mg capsule 1.5 mg PO DAILY 03/17/23 03/17/23 (Vraylar) Previous Rx's ?Medication ?Instructions ?Recorded rosuvastatin 5 mg tablet 5 mg PO DAILY #90 tabs 01/05/23 Allergies Allergy/AdvReac Type Severity Reaction Status Date / Time naproxen [Aleve] Allergy Severe throat Verified 11/13/23 00:15 swelling Review of Systems Review of Systems: Yes all other systems are reviewed and are negative PMFSH Past Medical History Medical History Vitamin D deficiency Burning pain Neuropathy Vitamin B 12 deficiency Lyme disease Pruritus Gallstones Abdominal pain Anxiety COVID-19 vaccine series completed History of venomous spider bite Cataract Abnormal colonoscopy Mammogram normal Depression Hyperlipidemia Surgical History Hx of colonoscopy Family History Family History Father Diabetes Stroke Mother Heart problem History of breast cancer Daughter Graves disease Social History Social History Housing: House Patient Tobacco Use Status: Never used Tobacco Smoked in Last 30 Days: No e-Cigarette/Vaping Use: Never Used Second Hand Smoke Exposure: No Use of substances other than those prescribed or required for medical reasons: No Advance Directives: No Advance Directives Information Provided: Yes Do you have a plan to hurt others: No Plan service: No Current occupational status: retired Cognitive needs: No Hearing needs: No Vision needs: Yes Physical Exam Vital Signs: Vital Signs: Last Vital Signs Temp 97.5 F 11/13/23 00:13 Pulse 72 11/13/23 00:13 Resp 16 11/13/23 00:13 BP 123/56 L 11/13/23 00:13 Pulse Ox 97 11/13/23 00:13 O2 Del Method Room Air 11/13/23 00:13 BMI result Body Mass Index 27.4 Appearance: Alert. Oriented X3. No acute distress. Head/face: normocephalic, right upper forehead with a 3.5cm x 0.5cm linear superficial laceration w/ oozing, mild surrounding swelling, no crepitus. Eyes: Pupils equal, round and reactive to light. ENT: Pharynx normal. No tonsillar swelling or exudate. Normal TMs bilaterally, no hemotympanium Neck: Normal inspection. Neck supple. No midline tenderness CVS: Normal heart rate and rhythm. Pulses normal. Respiratory: No respiratory distress. Breath sounds normal. Mild right lateral, lower rib tenderness. Abdomen: Soft and nontender. +BS x4. No ecchymosis on the abd or flanks Skin: Skin warm and dry. Normal skin color. Normal skin turgor. No rashes. Extremities: No lower extremity edema. No joint swelling. Neuro/psych: Oriented X 3. No motor deficit. No sensory deficit. CN II-XII intact. Normal speech and cognition. Flat affect. depressed mood Medications Administered Discontinued Medications Generic Name Dose Route Start Last Admin Trade Name Freq PRN Reason Stop Dose Admin Diphtheria/Tetanus/Acell Pertussis 0.5 ml 11/13/23 01:24 11/13/23 01:41 Diphth,Pertus(Acell),Tet Adult 0.5 Ml Syringe IM 11/13/23 01:25 0.5 ml .ONCE ONE Administration Sodium Chloride 1,000 mls @ 999 mls/hr 11/13/23 01:00 11/13/23 02:01 Ns IV 11/13/23 02:00 Infused .Q1H1M JAYESH Infusion Lidocaine HCl 5 ml 11/13/23 00:43 11/13/23 00:51 Lidocaine Hcl 1 % Mpf 5 Ml Vial INFILTRATI 11/13/23 00:44 5 ml ONCE ONE Administration Ondansetron HCl 4 mg 11/13/23 00:50 11/13/23 00:52 Ondansetron Hcl 4 Mg/2 Ml Vial IVPUSH 11/13/23 00:51 4 mg ONCE ONE Administration Procedures Laceration Laceration 1: Site: face Side (If applicable): right Size (cm): 3.5 Description: linear Depth: simple, single layer Local Anesthetic: lidocaine 1% Amount of anesthesia used (mL): 3 Pre-repair: wound explored, irrigated extensively and deep structures intact Skin layer closed with: other (prolene) Size (cm): 6-0 Number of sutures: 9 Technique: simple, interrupted Medical Decision Making Medical Decision Making MDM Narrative: 70-year-old female with history of depression, anxiety, hyperlipidemia who presents to the ER for evaluation of a syncopal episode today with head strike in the setting of vomiting today. Patient arrives to the ER hemodynamically stable. She has a 3.5 cm laceration on her forehead the require suture repair. She has some mild tenderness on the right flank, no significant tenderness or crepitus palpated. She has clear lung sounds throughout and is able to take a deep breath. Low clinical suspicion for rib fracture, hepatic injury. CT scans of the head and neck were ordered along with blood work, orthostatic vital signs, EKG and x-rays of the ribs. Signed out to Dr. Serrano who will follow-up imaging and orthostatics. Patient is hopeful to be discharged home however pending results and improvement. Patient's CT scan of the head and neck were both grossly negative. EKG showed a sinus rhythm heart rate is 60 NE QRS QTC normal no acute ST segment elevation. Patient's white count is normal. Hemoglobin is normal. Troponin is negative. Rib x-ray showed no acute fracture by my interpretation. Will discharge patient home likely vasovagal. In stable condition Differential Diagnosis Differential Diagnoses: The differential diagnosis associated with the presentation includes Vasovagal syncope, orthostatic hypotension, dehydration due to vomiting and GI losses, viral gastroenteritis, low clinical suspicion for cardiac arrhythmia Admission/Observation Consideration of admission/observation: Escalation of care including admission/observation considered Lab Data MDM Lab Attestation statement: I reviewed the patient's lab results. No leukocytosis, mild anemia, mild elevation of BUN, normal renal function, no major metabolic derangement 11/13/23 00:58 11/13/23 00:58 Labs: Lab Results 11/13/23 Range/Units 00:58 WBC 7.1 (4.8-10.8) X10*3/uL RBC 4.11 L (4.20-5.50) X10*6/uL Hgb 12.5 (12.0-16.0) g/dl Hct 36.7 L (37.0-47.0) % MCV 89.3 (80.0-98.0) fL MCH 30.4 (27.0-33.0) pg MCHC 34.1 (31.0-35.0) g/dl RDW 12.9 (11.0-16.0) % Plt Count 162 (160-400) X10*3/uL MPV 9.4 (9.4-12.3) fL Immature Gran % (Auto) 0.4 (0.0-0.4) % Neut % (Auto) 83.6 H (45-73) % Lymph % (Auto) 11.6 L (20-40) % Alfalfa % (Auto) 4.0 (2-11) % Eos % (Auto) 0.1 (0-4) % Baso % (Auto) 0.3 (0-2) % Lymph # (Auto) 0.8 L (1.2-4.9) X10*3/uL Alfalfa # (Auto) 0.3 (0.1-1.2) X10*3/uL Eos # (Auto) 0.0 (0.0-0.4) X10*3/uL Baso # (Auto) 0.0 (0.0-0.2) X10*3/uL Abs Immat Gran (auto) 0.03 (0.00-0.03) X10*3/uL Absolute Neuts (auto) 5.9 (2.0-8.3) x10*3/uL Absolute Nucleated RBC 0.000 (0.0-0.012) X10*3/uL Nucleated RBC % (auto) 0.0 (0.0-0.2) /100WBC Sodium 141 (135-145) mmol/L Potassium 4.1 (3.3-5.1) mmol/L Chloride 108 (96-108) mmol/L Carbon Dioxide 24 (22-29) mmol/L Anion Gap 13 (12-20) BUN 24 H (9-16) mg/dL Creatinine 0.81 (0.5-1.4) mg/dL Estim Creat Clear Calc 51.7 Estimated GFR > 60 Random Glucose 134 H (60-115) mg/dL Calcium 9.9 (8.4-10.2) mg/dL Troponin I High Sens 3.0 (<3.5-17.0) ng/L Independent Interpretation I performed an independent interpretation of an: EKG, Plain X-Ray and CT Scan Interpretation: EKG with sinus rhythm, ventricular rate 63 beats per minute, first-degree AV block with NE interval 214, normal QTC, no ST segment elevations or depressions Independent Historian Clinical information obtained from an independent historian. History obtained from or confirmed by: Spouse External Record Review External record reviewed: Outpatient record and Prior outpatient labs Prescription Management I considered prescription management with: Pain Medication Chronic Conditions Patient?s care impacted by: Other (Depression) Social Determinants Patient?s care significantly limited by Social Determinants of Health including: Problems related to primary support group and Other Social Determinant of Health Discharge Plan Discharge Clinical Impression: Head injury, Syncope, vasovagal Laceration of head Qualifiers: Encounter type: initial encounter Location of open wound of head: unspecified part of head Foreign body presence: without foreign body Qualified Code(s): S01.91XA - Laceration without foreign body of unspecified part of head, initial encounter Patient Disposition: Home, Self-Care Instructions: Head Laceration (ED), Head Injury (ED), Syncope (ED) Additional Instructions: 9 stitches were used to close your wound today You will need your stitches out in 5-7 days. See you doctor for this or come back to the ER and we will remove them. Do not get wet for 24 hours, after that you can briefly wash with soap and water then pat dry. Keep wound clean and covered. Do not submerge in water, no swimming. If you develop signs of infection including increased pain, swelling, redness or drainage of pus come back to the ER for further evaluation. Prescriptions: No Action rosuvastatin 5 mg tablet 5 mg PO DAILY Qty: 90 3RF vitamin B complex Tablet 1 tab PO DAILY coQ10 (ubiquinol) 100 mg Capsule 200 mg PO DAILY PreserVision AREDS multivitamin Tablet 1 tab PO DAILY Align 4 mg capsule 4 mg PO BEDTIME duloxetine 30 mg capsule,delayed release(DR/EC) 30 mg PO BID Vraylar 1.5 mg capsule 1.5 mg PO DAILY Referrals: Gabbie Perea MD [Primary Care Provider] - (Suture removal in 5-7 days) Print Language: [place]se
[2023-11-13] MEDS: Lidocaine HCl 1 % MPF 5 ML VIAL INFILTRATI (00:51)
[2023-11-13] MEDS: ondansetron HCL 4 MG/2 ML VIAL IVPUSH (00:52)
[2023-11-13] MEDS: 0.9 % Sodium Chloride 1,000 ML 999 ML IV (00:59)
[2023-11-13 01:04] LABS: Basophils Percent Auto 0.3 % (0-2); Eosinophils Percent Auto 0.1 % (0-4); Hematocrit 36.7 % (37.0-47.0); Hemoglobin 12.5 g/dl (12.0-16.0); Imm Gran Abs Auto 0.03 X10*3/uL (0.00-0.03); Imm Gran Pct Auto 0.4 % (0.0-0.4); Lymphocytes Absolute Auto 0.8 X10*3/uL (1.2-4.9); Lymphocytes Percent Auto 11.6 % (20-40); MANUAL DIFF FLAG NO; Mean Corpuscular HGB Conc 34.1 g/dl (31.0-35.0); Mean Corpuscular Hemoglobin 30.4 pg (27.0-33.0); Mean Corpuscular Volume 89.3 fL (80.0-98.0); Mean Platelet Volume 9.4 fL (9.4-12.3); Monocytes Absolute Auto 0.3 X10*3/uL (0.1-1.2); Neutrophils Absolute Auto 5.9 x10*3/uL (2.0-8.3); Neutrophils Percent Auto 83.6 % (45-73); Platelet Count 162 X10*3/uL (160-400); Red Blood Count 4.11 X10*6/uL (4.20-5.50); Red Cell Distribution Width 12.9 % (11.0-16.0); White Blood Count 7.1 X10*3/uL (4.8-10.8)
[2023-11-13 01:17] LABS: Anion Gap 13 (12-20); Blood Urea Nitrogen 24 mg/dL (9-16); Calcium 9.9 mg/dL (8.4-10.2); Carbon Dioxide 24 mmol/L (22-29); Chloride 108 mmol/L (96-108); Creatinine Clr Calc Pharmacy 51.7; Estimated Glomerular Filt Rate > 60; Glucose Random 134 mg/dL (60-115); Potassium 4.1 mmol/L (3.3-5.1); Sodium 141 mmol/L (135-145)
[2023-11-13] MEDS: Diphth,Pertus(ACell),Tet Adult 0.5 ML SYRINGE IM (01:41)
[2023-11-13 04:09] VITALS: BP 128/58; PULSE 78; RESP 16; TEMP 36.4; O2SAT 97
== END 2023-11-13 04:11 | disposition home or self-care (01) ==
PROVIDERS: Emergency Provider Emergency Medicine Emergency Medical Services; PCP Internal Medicine
DX: R55 Syncope and collapse (principal); S09.90XA Unspecified injury of head, initial encounter; S01.81XA Laceration without foreign body of other part of head, initial encounter; W18.30XA Fall on same level, unspecified, initial encounter; F32.A Depression, unspecified; F41.9 Anxiety disorder, unspecified; E78.5 Hyperlipidemia, unspecified; Y93.89 Activity, other specified; Y92.019 Unspecified place in single-family (private) house as the place of occurrence of the external cause; Y99.9 Unspecified external cause status; Z23 Encounter for immunization; Z79.02 Long term (current) use of antithrombotics/antiplatelets; Z79.899 Other long term (current) drug therapy
CPT/HCPCS: 12013; 36415; 70450; 71101; 72125; 80048; 84484; 85025; 90471; 90715; 93005; 96361; 96374; 99285; J2405

== ENCOUNTER → 2023-11-13 00:20 | Outpatient (BNV) | payer MEDICARE, SELFPAY | PROVIDERS: Emergency Provider Emergency Medicine Emergency Medical Services; PCP Internal Medicine; Visit Provider Internal Medicine | DX: R94.31 Abnormal electrocardiogram [ECG] [EKG] (principal) | CPT/HCPCS: 93010 ==

== ENCOUNTER 2024-02-15 08:48 | Outpatient (REF) | payer MEDICARE, SELFPAY | END 2024-02-15 08:49 | disposition home or self-care (01) | LOC: HO.HOSX 08:48 | PROVIDERS: Visit Provider Orthopaedic Surgery | DX: Z13.89 Encounter for screening for other disorder (principal) ==

== ENCOUNTER 2024-03-21 10:12 | Outpatient (AMB) | payer MEDICARE, SELFPAY ==
[2024-03-21 10:14] VITALS: BMI 27.4
--- NOTE | 2024-03-21 10:14 | A.OFFVIS_ITS ---
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 Patient's reports this started back in November,. Patient reports she no longer has left hand numbness, tingling, or finger locking. Patient's shares she had Lyme disease about 3 years ago but it was not treated on time therefore she developed small fiber neuropathy. She also states her right middle finger is locking but she has not received any treatments for it. Denies prior injuries, surgeries, or OT for the hands. Allergies naproxen [Aleve] Allergy (Severe, Verified 03/21/24 10:14) throat swelling HPI HPI GALLERY OR MUSEUM GUIDE-Left hand swelling: Details: Caitlin is a 78 year old right hand dominant woman who presents today with her with with complaints of right middle finger locking. She was initially scheduled for left hand swelling, but denies any current swelling today. The patient appears to be a poor historian, and her was present to help answer questions & give a history. She complains of painful locking of the right middle finger. She says she is unable to hold things due to her finger locking. She also complains of some persistent numbness in the thumb, index, and middle fingers. She says she has difficulties with some activities such as buttoning her shirt. She says she had an incident of left hand swelling in 11/2023. On speaking with her , he explains that she had significant swelling in her left hand, which did not extend past the wrist. He says her fingers were very swollen and her skin began peeling, appearing almost blistered. He says this occurred suddenly at their daughter's house, and denies any known injury. He says this took ~6 weeks to resolve and has no re-occurred since. She denies any locking of the left hand. She reports persistent numbness in the left median nerve distribution, and difficulties with activities She has a hx of bilateral carpal tunnel syndrome, seen on NCS done 02/2021. This report is not available for review. Patient denies any prior surgeries. She has a Hx of Lyme disease in 2020, which was teated, small fiber neuropathy, and peripheral neuropathy. She has a blunted affect today, and of note she is on Vraylar for this. [facility] Medical History Vitamin D deficiency Burning pain Neuropathy Vitamin B 12 deficiency Lyme disease Pruritus Gallstones Abdominal pain Anxiety COVID-19 vaccine series completed History of venomous spider bite Cataract Abnormal colonoscopy Mammogram normal Depression Hyperlipidemia Surgical History Hx of colonoscopy Family History Father Diabetes Stroke Mother Heart problem History of breast cancer Daughter Graves disease Social History (Updated 03/21/24 @ 10:17 by CEE Moon) Housing: House Patient Tobacco Use Status: Never used Tobacco e-Cigarette/Vaping Use: Never Used Second Hand Smoke Exposure: No service: No Current occupational status: retired Current occupation: rt handed Cognitive needs: No Hearing needs: No Vision needs: Yes Review of Systems Const All systems reviewed & are unremarkable except as noted in HPI and below Physical Exam Vital Signs: BMI result Body Mass Index 27.4 Const General: cooperative, healthy appearing and no acute distress Orientation/consciousness: patient oriented x3 HEENT Head: Yes normocephalic and Yes atraumatic Eyes EOM: EOMs intact bilaterally Resp Effort & Inspection: normal respiratory effort and able to speak in complete sentences Cardio Jugular venous distension: no JVD Skin General skin exam: turgor normal Rashes: no rashes Neuro General: patient oriented x3 Extrem Other: Evaluation of Bilateral Upper Extremity: The patient is alert, oriented, and in no acute distress Blunted affect today Neuro: Dense numbness in the fingertips of the median nerve distribution bilaterally. Normal sensation to the ulnar nerve distribution Some thenar atrophy bilaterally, no intrinsic wasting She still has Some APB muscle belly firing bilaterally and good finger cross Vascular: Cap refill brisk ROM: She can make a fist and extend all her digits Visible and palpable locking & catching of the right middle finger Tender over the a1 malik of the right middle finger Skin: No lacerations or abrasions. General: No Ecchymosis. No Erythema or evidence of infection. Radiographs: 3 views of the left hand were taken and viewed by me today in clinic. They show no fractures or dislocations. She has STT & Basal joint osteoarthritis, with joint space narrowing & osteophyte formation, as well as some early arthritic changes in the DIP joints. Psych Appearance: grossly normal Affect: normal affect Attitude: cooperative Assessment & Plan Assessment & Plan (1) Carpal tunnel syndrome of right wrist: Code(s): G56.01 - Carpal tunnel syndrome, right upper limb Category: Medical (2) Trigger finger, right middle finger: Code(s): M65.331 - Trigger finger, right middle finger Category: Medical (3) Carpal tunnel syndrome of left wrist: Code(s): G56.02 - Carpal tunnel syndrome, left upper limb Category: Medical (4) Arthritis of carpometacarpal (CMC) joint of left thumb: Code(s): M18.12 - Unilateral primary osteoarthritis of first carpometacarpal joint, left hand Category: Medical (5) Swelling of left hand: Code(s): M79.89 - Other specified soft tissue disorders Category: Medical (6) Depression: Comment: cont Citalopram, Code(s): F32.9 - Major depressive disorder, single episode, unspecified Category: Medical Plan Assessment & Plan: 1. Right carpal tunnel syndrome, moderate-severe Scanned neurology report from [facility] from 12/11/21 noted that NCS performed 03/2021, report not available for review With dense numbness & some thenar atrophy 2. Right middle finger trigger finger I educated her and her about these conditions I discussed operative and non-operative treatment options The patient would like to proceed with surgery The risks and benefits of operative treatment were discussed with the patient and the patient wishes to proceed with surgery. These risks include, but are not limited to risk of damage to blood vessels, nerves, tendons, infection, recurrence, incomplete relief of preoperative symptoms, persistent pain, possible need for further surgery and the risks associated with regional blocks and anesthesia. The plan is to take the patient to the operating room sometime in the next few weeks for the following procedures: 1. Right carpal tunnel release, under local 2. Right middle finger trigger release, under local All of the preoperative paperwork including the consent was reviewed today. All the patient's questions were answered. The patient understands that they will be contacted by our equipment scheduler soon to schedule this procedure She denies Diabetes, blood thinners, asthma, heart, lung, kidney issues 3. Left carpal tunnel syndrome, moderate-severe Scanned neurology report from [facility] from 12/11/21 NCS performed 03/2021, report not available for review With dense numbness & some thenar atrophy We can discuss this at a later appointment 4. Left Basal joint osteoarthritis No complaints today 5. Left hand swelling Onset ~11/2023, resolved over ~6 weeks Etiology unclear, no recurrence since Please note that greater than 30 minutes was spent with this patient going over the history, evaluating the patient and radiographs, formulating possible treatment options, discussing them with the patient, and documenting the visit. Scribed for Leah Saunders MD by Joselo Jackson, medical physicist, on 03/21/24 at 10:40 AM, EST. Orders: Orders XR hand LT min 3V Today M79.642 - Pain in left hand Coding Level of Care Code New Pt Level 4 (86143) Diagnoses Carpal tunnel syndrome of right wrist G56.01 Trigger finger, right middle finger M65.331 Carpal tunnel syndrome of left wrist G56.02 Arthritis of carpometacarpal (CMC) joint of left thumb M18.12 Swelling of left hand M79.89 Depression F32.9
== END 2024-03-21 11:17 | disposition home or self-care (01) ==
PROVIDERS: PCP Internal Medicine; Visit Provider Orthopaedic Surgery
DX: G56.03 Carpal tunnel syndrome, bilateral upper limbs (principal); M65.331 Trigger finger, right middle finger; M18.12 Unilateral primary osteoarthritis of first carpometacarpal joint, left hand; M79.89 Other specified soft tissue disorders; F32.9 Major depressive disorder, single episode, unspecified
CPT/HCPCS: 99204

== ENCOUNTER 2024-03-21 14:35 | Outpatient (REF) | payer MEDICARE, SELFPAY | END 2024-03-21 14:36 | disposition home or self-care (01) | LOC: HO.HOSX 14:35 | PROVIDERS: Visit Provider Orthopaedic Surgery | DX: M79.642 Pain in left hand (principal); G56.01 Carpal tunnel syndrome, right upper limb; M65.331 Trigger finger, right middle finger; G56.02 Carpal tunnel syndrome, left upper limb; M18.12 Unilateral primary osteoarthritis of first carpometacarpal joint, left hand; M79.89 Other specified soft tissue disorders; F32.9 Major depressive disorder, single episode, unspecified | CPT/HCPCS: 73130; 99202 ==

== ENCOUNTER 2024-04-11 13:24 | Outpatient (AMB) | payer MEDICARE, SELFPAY ==
[2024-04-11 13:41] VITALS: BP 118/70; PULSE 85; O2SAT 98; BMI 28.7
--- NOTE | 2024-04-11 13:41 | MHC.PC.OV ---
Vital Signs 04/11/24 13:41 Height 5 ft 2 in Weight 157 lb BMI 28.7 BP 118/70 Blood Pressure Location Rt brachial Position Sitting Pulse 85 Pulse Source Pulse Oximeter Pulse Oximetry (%) 98 Oxygen Delivery Method Room Air Intake Visit Reasons: Follow up Intake Note: Pt is here today for a follow up visit check up. Allergies naproxen [Aleve] Allergy (Severe, Verified 04/11/24 13:43) throat swelling Medication List - Last Reconciled 04/11/24 by Gabbie Perea MD cariprazine (Vraylar) 1.5 mg PO DAILY duloxetine 30 mg PO BID multivitamin 1 tab PO DAILY rosuvastatin 5 mg PO DAILY Tobacco use date assessed: 04/11/24 Fall risk assessment: 1 Fall in past year Last assessed Fall Risk: 04/11/24 Dental Screening Dental Screen Date: 04/11/24 Did you have a dental visit in the last 12 months?: Yes Did you have a dental problem in the last 6 months where you did not have access to dental care?: No Was dental information given to patient?: Patient has dentist HPI Follow up HPI Details Pt presents for f/u hyperlipid and chronic depression, established with psychiatric technician prescribing medications. Patient has been looking for a counselor and a psychiatrist. Patient reports episodes of nausea vomiting followed by diarrhea after eating fatty foods once or twice a month. She denies abdominal pain hematochezia melena weight loss. [facility] Medical History Vitamin D deficiency Burning pain Neuropathy Vitamin B 12 deficiency Lyme disease Pruritus Gallstones Abdominal pain Anxiety COVID-19 vaccine series completed History of venomous spider bite Cataract Abnormal colonoscopy Mammogram normal Depression Hyperlipidemia Surgical History Hx of colonoscopy Family History Father Diabetes Stroke Mother Heart problem History of breast cancer Daughter Graves disease Social History Housing: House Patient Tobacco Use Status: Never used Tobacco e-Cigarette/Vaping Use: Never Used Second Hand Smoke Exposure: No service: No Current occupational status: retired Current occupation: rt handed Cognitive needs: No Hearing needs: No Vision needs: Yes Questionnaire PHQ-9 Over the last 2 weeks, how often have you been bothered by any of the following problems? 1. Little interest or pleasure in doing things: more than half the days 2. Feeling down, depressed, or hopeless: more than half the days 3. Trouble falling or staying asleep, or sleeping too much: more than half the days 4. Feeling tired or having little energy: more than half the days 5. Poor appetite or overeating: several days 6. Feeling bad about yourself - or that you are a failure or have let yourself or your family down: several days 7. Trouble concentrating on things, such as reading the newspaper or watching television: several days 8. Moving or speaking so slowly that other people could have noticed. Or the opposite - being so fidgety or restless that you have been moving around a lot more than usual: more than half the days 9. Thoughts that you would be better off or of hurting yourself in some way: several days Total score: 14 Depression Screening Interpretation: Positive Depression Screening Follow-up: Existing condition and In treatment Depression Screening Done: Yes 55075 - PHQ-9 Billing: Yes Source: Developed by Drs. Pepito Quinn, Rosie Shields, Homar Rain and colleagues, with an educational tereso from [email or web address]. Thrive Questionnaire Date Thrive assessed: 04/11/24 I am a: Patient What is your living situation today?: I have a steady place to live Within the past 12 months, did the food you bought not last and you didn't have the money to get more?: Never true Within the past 12 months, did you worry whether your food would run out before you got money to buy more?: Never true Do you have trouble paying for medicines?: No Do you have trouble getting transportation to medical appointments?: No Do you have trouble paying your heating and electricity bill?: No Do you have trouble taking care of your child, family member or friend?: No Do you have trouble with day-to-day activities such as bathing, preparing meals, shopping, managing finances, etc.?: Yes Are you currently unemployed and looking for a job?: No Are you interested in more education?: No Please select the resources that you would like help with: None Currently or been in a relationship where the following occur: No concerns reported THRIVE Score: 0 AUDIT C Alcohol Use Questionnaire (AUDIT-C) 1. How often do you have a drink containing alcohol?: Monthly or less 2. How many drinks containing alcohol do you have on a typical day when you are drinking?: 1 or 2 3. How often do you have six or more drinks on one occasion?: Never Total Score: 1 ALICE-7 AMB Questionnaire ALICE-7 Date ALICE - 7 assessed: 04/11/24 Feeling nervous, anxious, or on edge: 1 = Several days Not being able to stop or control worryin = More than half the days Worrying too much about different things: 2 = More than half the days Trouble relaxin = Several days Being so restless that it is hard to sit still: 0 = Not at all Becoming easily annoyed or irritable: 0 = Not at all Feeling afraid as if something awful might happen: 1 = Several days Total ALICE-7 score (0-4 normal; 5-9 mild; 10-14 moderate; 15-21 severe): 7 Source: Developed by Drs. Pepito Quinn, Rosie Shields, Homar Rain and colleagues, with an educational tereso from [email or web address]. ALICE-7 Assessment Billing ALICE-7 Assessment Tool: ALICE-7 Assessment 31272 Review of Systems Const All systems reviewed & are unremarkable except as noted in HPI and below Eyes Reports no additional complaints ENT Reports no additional complaints Card Reports no additional complaints Resp Reports no additional complaints GI Reports no additional complaints Reports no additional complaints Musc Reports no additional complaints Physical exam (Primary Care) Vital Signs: Last Vital Signs Pulse 85 04/11/24 13:41 BP 118/70 04/11/24 13:41 Pulse Ox 98 04/11/24 13:41 Oxygen Delivery Method Room Air 04/11/24 13:41 BMI result Body Mass Index 28.7 Tobacco/Smoking Status: Tobacco use Status Tobacco use date assessed 04/11/24 04/11/24 13:46 Patient Tobacco Use Status Never used Tobacco 04/11/24 13:46 e-Cigarette/Vaping Use Never Used 04/11/24 13:46 PHQ-9: PHQ-9 Score PHQ-9: Total score 14 04/11/24 13:46 Depression Screening Interpretation: Positive Depression Screening Follow-up: Existing condition and In treatment Thrive Assessment: Date of Thrive Assessment Date Thrive assessed 04/11/24 04/11/24 13:46 Currently or been in a relationship where the following occur: No concerns reported Const General: no acute distress HENMT Head: Yes normal to inspection Ears: hearing grossly normal bilaterally Face and sinus: Yes normal facial exam Throat: Yes posterior oropharynx normal Eyes General: appearance normal, both eyes and all related structures Resp Effort & Inspection: normal respiratory effort Auscultation: clear to auscultation bilaterally Cardio Rhythm: regular rhythm Heart sounds: S1 normal heart sound present and S2 normal heart sound present GI Inspection: Yes normal to inspection Palpation (GI): Soft to palpation Percussion: Yes normal to percussion Auscultation: normal bowel sounds Coding Level of Care Code Est Pt Level 4 (00475) Diagnoses Hyperlipidemia E78.5 Depression F32.9 Vomiting and diarrhea R11.10; R19.7 Additional Codes ALICE-7 Assessment Billing - ALICE-7 Assessment Tool: ALICE-7 Assessment 35499 ([id number]) Assessment & Plan Assessment & Plan (1) Hyperlipidemia: Comment: cont Crestor Code(s): E78.5 - Hyperlipidemia, unspecified Category: Medical Plan: Continue statin return for fasting labs including lipid profile (2) Depression: Comment: Established with prescriber PERSONNEL RECRUITER Code(s): F32.9 - Major depressive disorder, single episode, unspecified Category: Medical Plan: Patient is in process of finding a new counselor and a psychiatrist (3) Vomiting and diarrhea: Comment: After eating fatty foods once or twice a month Code(s): R11.10 - Vomiting, unspecified; R19.7 - Diarrhea, unspecified Category: Medical Plan: Obtain abdominal ultrasound to evaluate for gallstones return for fasting blood work. Trial of PPI for 1 month. Follow-up with the established GI Dr. Sloan roldan Orders: Orders Complete Blood Count Auto Diff Today E78.5 - Hyperlipidemia, unspecified, F32.9 - Major depressive disorder, single episode, unspecified Lipid Panel Today E78.5 - Hyperlipidemia, unspecified, F32.9 - Major depressive disorder, single episode, unspecified Comprehensive [place]. Panel Fast Today E78.5 - Hyperlipidemia, unspecified, F32.9 - Major depressive disorder, single episode, unspecified TSH reflex Free T4 Today E78.5 - Hyperlipidemia, unspecified, F32.9 - Major depressive disorder, single episode, unspecified US abdomen complete Today E78.5 - Hyperlipidemia, unspecified, F32.9 - Major depressive disorder, single episode, unspecified Hemoglobin A1c Today E78.5 - Hyperlipidemia, unspecified, F32.9 - Major depressive disorder, single episode, unspecified Medications: New omeprazole 20 mg PO DAILY 30 caps 1RF
== END 2024-04-11 14:07 | disposition home or self-care (01) ==
LOC: HO.HMCC 13:25
PROVIDERS: PCP Internal Medicine; Visit Provider Internal Medicine
DX: E78.5 Hyperlipidemia, unspecified (principal); F32.9 Major depressive disorder, single episode, unspecified; R11.10 Vomiting, unspecified; R19.7 Diarrhea, unspecified

== ENCOUNTER → 2024-04-11 13:24 | Outpatient (BNVA) | payer MEDICARE, SELFPAY | PROVIDERS: PCP Internal Medicine; Visit Provider Internal Medicine | DX: E78.5 Hyperlipidemia, unspecified (principal); F32.9 Major depressive disorder, single episode, unspecified; R11.10 Vomiting, unspecified; R19.7 Diarrhea, unspecified | CPT/HCPCS: 96127; 99212 ==

== ENCOUNTER 2024-11-04 07:37 | Outpatient (REF) | payer MEDICARE, SELFPAY ==
[2024-11-04 07:54] LABS: MANUAL DIFF FLAG NO
[2024-11-04 08:30] LABS: Basophils Percent Auto 0.5 % (0-2); Hematocrit 38.5 % (37.0-47.0); Hemoglobin 12.6 g/dl (12.0-16.0); Imm Gran Abs Auto 0.05 X10*3/uL (0.00-0.03); Imm Gran Pct Auto 1.2 % (0.0-0.4); Lymphocytes Absolute Auto 1.4 X10*3/uL (1.2-4.9); Lymphocytes Percent Auto 32.5 % (20-40); Mean Corpuscular HGB Conc 32.7 g/dl (31.0-35.0); Mean Corpuscular Hemoglobin 29.1 pg (27.0-33.0); Mean Corpuscular Volume 88.9 fL (80.0-98.0); Mean Platelet Volume 9.5 fL (9.4-12.3); Monocytes Absolute Auto 0.3 X10*3/uL (0.1-1.2); Monocytes Percent Auto 7.4 % (2-11); Neutrophils Absolute Auto 2.4 x10*3/uL (2.0-8.3); Neutrophils Percent Auto 57.4 % (45-73); Platelet Count 176 X10*3/uL (160-400); Red Blood Count 4.33 X10*6/uL (4.20-5.50); Red Cell Distribution Width 13.2 % (11.0-16.0); White Blood Count 4.2 X10*3/uL (4.8-10.8)
[2024-11-04 08:48] LABS: Estimated Average Glucose 114 mg/dL; Hemoglobin A1c % 5.6 % (<6.0)
[2024-11-04 08:58] LABS: B Type Natriuretic Peptide 63 pg/mL (<100)
[2024-11-04 09:03] LABS: Creatinine Urine 53.01 mg/dL; Microalbumin Urine < 5.0 mg/L
[2024-11-04 09:18] LABS: Alanine Aminotransferase 14 U/L (0-31); Albumin Level 4.4 g/dL (3.5-5.0); Alkaline Phosphatase 68 U/L (39-117); Anion Gap 13 (12-20); Aspartate Amino Transferase 16 U/L (5-31); Bilirubin Total 0.4 mg/dL (0.0-1.0); Blood Urea Nitrogen 15 mg/dL (9-16); Calcium 9.5 mg/dL (8.4-10.2); Carbon Dioxide 26 mmol/L (22-29); Chloride 108 mmol/L (96-108); Cholesterol 177 mg/dL (<200); Estimated Glomerular Filt Rate > 60; Glucose Fasting 93 mg/dL (60-99); HDL Cholesterol 52 mg/dL (>40); LDL Cholesterol Calculated 99 mg/dL (<100); Sodium 143 mmol/L (135-145); Triglycerides 133 mg/dL (<150)
[2024-11-04 09:22] LABS: TSH reflex Free T4 1.84 uIU/mL (0.32-4.0); Vitamin D 25-OH Total 25.5 ng/mL (>30)
== END 2024-11-04 07:38 | disposition home or self-care (01) ==
LOC: HO.LAB 07:37
PROVIDERS: PCP Internal Medicine; Visit Provider Internal Medicine
DX: F32.9 Major depressive disorder, single episode, unspecified (principal); E78.5 Hyperlipidemia, unspecified; E53.8 Deficiency of other specified B group vitamins; G62.9 Polyneuropathy, unspecified; R73.9 Hyperglycemia, unspecified; R06.09 Other forms of dyspnea
CPT/HCPCS: 36415; 80053; 80061; 82043; 82306; 82570; 83036; 83880; 84443; 85025

== ENCOUNTER 2024-11-07 08:52 | Outpatient (AMB) | payer MEDICARE, SELFPAY ==
--- NOTE | 2024-11-07 08:57 | MHC.PC.OV ---
Vital Signs 11/07/24 08:58 Height 5 ft 2 in Weight 159 lb BMI 29.1 BP 118/62 Blood Pressure Location Rt brachial Position Sitting Respiration 18 Pulse 85 Pulse Source Pulse Oximeter Temp 98.9 F Temp Source Oral Pulse Oximetry (%) 97 Oxygen Delivery Method Room Air Intake Visit Reasons: Follow up Intake Note: Pt is here today for a follow up visit. Pt is here today with her daughters pt has been feeling dizzy. Allergies naproxen [Aleve] Allergy (Severe, Verified 11/07/24 09:01) throat swelling Tobacco use date assessed: 11/07/24 Fall risk assessment: 2 + Falls in past year Last assessed Fall Risk: 11/07/24 Dental Screening Dental Screen Date: 11/07/24 Did you have a dental visit in the last 12 months?: Yes Did you have a dental problem in the last 6 months where you did not have access to dental care?: No Was dental information given to patient?: Patient has dentist HPI Follow up HPI Details Patient presents for the follow-up with her 2 daughters. patient has been complaining of lightheadedness, generalized weakness , spending most days on the couch either lying down or sleeping. Patient has been feeling depressed. She has been looking for psychiatrist for the last 6 months. She has an appointment with a new psychiatrist in 3 weeks. Patient's daughter are concerned about patient's declining memory forgetting when she plays different items. Patient's has been managing her medications and preparing meals. He is currently hospitalized with metastatic cancer. [facility] Medical History (Updated 11/07/24 @ 11:02 by Gabbie Perea MD) Vitamin D deficiency Burning pain Neuropathy Vitamin B 12 deficiency Lyme disease Pruritus Gallstones Abdominal pain Anxiety COVID-19 vaccine series completed History of venomous spider bite Cataract Abnormal colonoscopy Mammogram normal Depression Hyperlipidemia Surgical History Hx of colonoscopy Family History Father Diabetes Stroke Mother Heart problem History of breast cancer Daughter Graves disease Social History Housing: House Patient Tobacco Use Status: Never used Tobacco e-Cigarette/Vaping Use: Never Used Second Hand Smoke Exposure: No service: No Current occupational status: retired Current occupation: rt handed Cognitive needs: No Hearing needs: No Vision needs: Yes Questionnaire PHQ-9 Over the last 2 weeks, how often have you been bothered by any of the following problems? 1. Little interest or pleasure in doing things: nearly every day 2. Feeling down, depressed, or hopeless: nearly every day 3. Trouble falling or staying asleep, or sleeping too much: nearly every day 4. Feeling tired or having little energy: nearly every day 5. Poor appetite or overeating: more than half the days 6. Feeling bad about yourself - or that you are a failure or have let yourself or your family down: nearly every day 7. Trouble concentrating on things, such as reading the newspaper or watching television: nearly every day 8. Moving or speaking so slowly that other people could have noticed. Or the opposite - being so fidgety or restless that you have been moving around a lot more than usual: nearly every day 9. Thoughts that you would be better off or of hurting yourself in some way: several days Total score: 24 Depression Screening Interpretation: Positive (Patient is established with a counselor and has an appointment with a psychiatrist in 3 weeks for medication management) Depression Screening Follow-up: Existing condition and In treatment Depression Screening Done: Yes 61811 - PHQ-9 Billing: Yes Source: Developed by Drs. Pepito Quinn, Rosie Shields, Homar Rain and colleagues, with an educational tereso from [employer]. Thrive Questionnaire Date Thrive assessed: 11/07/24 I am a: Patient What is your living situation today?: I have a steady place to live Within the past 12 months, did the food you bought not last and you didn't have the money to get more?: Never true Within the past 12 months, did you worry whether your food would run out before you got money to buy more?: Never true Do you have trouble paying for medicines?: No Do you have trouble getting transportation to medical appointments?: No Do you have trouble paying your heating and electricity bill?: No Do you have trouble taking care of your child, family member or friend?: No Do you have trouble with day-to-day activities such as bathing, preparing meals, shopping, managing finances, etc.?: Yes Are you currently unemployed and looking for a job?: No Are you interested in more education?: No Please select the resources that you would like help with: None Currently or been in a relationship where the following occur: No concerns reported THRIVE Score: 0 AUDIT C Alcohol Use Questionnaire (AUDIT-C) 1. How often do you have a drink containing alcohol?: Never 3. How often do you have six or more drinks on one occasion?: Never Total Score: 0 ALICE-7 AMB Questionnaire ALICE-7 Date ALICE - 7 assessed: 11/07/24 Feeling nervous, anxious, or on edge: 0 = Not at all Not being able to stop or control worryin = Not at all Worrying too much about different things: 0 = Not at all Trouble relaxin = Not at all Being so restless that it is hard to sit still: 0 = Not at all Becoming easily annoyed or irritable: 0 = Not at all Feeling afraid as if something awful might happen: 0 = Not at all Total ALICE-7 score (0-4 normal; 5-9 mild; 10-14 moderate; 15-21 severe): 0 Source: Developed by Drs. Pepito Quinn, Rosie Shields, Homar Rain and colleagues, with an educational tereso from [employer]. ALICE-7 Assessment Billing ALICE-7 Assessment Tool: ALICE-7 Assessment 27709 Review of Systems Const All systems reviewed & are unremarkable except as noted in HPI and below ENT Reports no additional complaints Card Reports no additional complaints Resp Reports no additional complaints GI Reports no additional complaints Reports no additional complaints Physical exam (Primary Care) Vital Signs: Last Vital Signs Temp 98.9 F 11/07/24 08:58 Pulse 85 11/07/24 08:58 Resp 18 11/07/24 08:58 BP 118/62 11/07/24 08:58 Pulse Ox 97 11/07/24 08:58 Oxygen Delivery Method Room Air 11/07/24 08:58 BMI result Body Mass Index 29.1 Tobacco/Smoking Status: Tobacco use Status Tobacco use date assessed 11/07/24 11/07/24 09:09 Patient Tobacco Use Status Never used Tobacco 11/07/24 09:09 e-Cigarette/Vaping Use Never Used 11/07/24 09:00 PHQ-9: PHQ-9 Score PHQ-9: Total score 11/07/24 10:12 Depression Screening Interpretation: Positive (Patient is established with a counselor and has an appointment with a psychiatrist in 3 weeks for medication management) Depression Screening Follow-up: Existing condition and In treatment Thrive Assessment: Date of Thrive Assessment Date Thrive assessed 11/07/24 11/07/24 10:12 Currently or been in a relationship where the following occur: No concerns reported Const General: no acute distress HENMT Ears: TM's normal bilaterally Eyes General: appearance normal, both eyes and all related structures Neck Neck: Yes supple Resp Effort & Inspection: normal respiratory effort Auscultation: clear to auscultation bilaterally Cardio Rhythm: regular rhythm Heart sounds: S1 normal heart sound present and S2 normal heart sound present GI Inspection: Yes normal to inspection Palpation (GI): Soft to palpation Percussion: Yes normal to percussion Auscultation: normal bowel sounds Neuro Cranial nerves: Yes CN's II-XII intact bilaterally Coordination: [id number] test normal Romberg Test: Negative Extrem General: Yes no clubbing, cyanosis or edema Coding Level of Care Code Est Pt Level 4 (94474) Diagnoses Balance disorder R26.89 Depression F32.9 Memory impairment R41.3 Neuropathy G62.9 Hyperlipidemia E78.5 Additional Codes ALICE-7 Assessment Billing - ALICE-7 Assessment Tool: ALICE-7 Assessment 66417 ([id number]) PHQ-9 - 31210 - PHQ-9 Billing: Yes ([id number]) Assessment & Plan Assessment & Plan (1) Balance disorder: Comment: Due to lower extremity weakness and neuropathy Code(s): R26.89 - Other abnormalities of gait and mobility Category: Medical Plan: Referred to physical therapy, follow-up in 1 month (2) Depression: Comment: Established with counselor will have evaluation but psychiatrist in mid November Code(s): F32.9 - Major depressive disorder, single episode, unspecified Category: Medical Plan: Continue duloxetine, pt will follow-up with a counselor and a psychiatrist follow-up in 1 month (3) Memory impairment: Code(s): R41.3 - Other amnesia Category: Medical Plan: Patient is established with Neurology. She will follow-up as needed after her depression is controlled (4) Neuropathy: Comment: Due to Chronic Lyme disease, follow-up in [place] Code(s): G62.9 - Polyneuropathy, unspecified Category: Medical Plan: Follow-up with neurology as needed (5) Hyperlipidemia: Comment: cont Jami Code(s): E78.5 - Hyperlipidemia, unspecified Category: Medical Plan: Continue Crestor
[2024-11-07 08:58] VITALS: BP 118/62; PULSE 85; RESP 18; TEMP 37.2; O2SAT 97; BMI 29.1
--- OUTSIDE RECORDS SUMMARY | 2024-11-07 09:15 | XMS_ITS | Patient Health Record ---
Author Organization [facility] Address [address] [place] [address] Care Team Providers Care Supervisory Air Intercept Controller Name Role Phone Gabbie Perea MD Primary Care Provider Kris Louie Jr Unavailable [phone] Allergies Allergen (clinical drug ingredient) Drug/Non Drug Allergy documented on EMR Reaction Allergy Type Onset Date Status Aleve Unknown Drug Allergy Active Reason For Referral No Information Medications Medication SIG (Take, Route, Fr equency, Duration) Notes Start Date End Date Status Crestor Active Vitamin D-3 Active Theragran-M Active Probiotic Active [place] 3 Active Citalopram Hydrobromide Active Social History Tobacco Use: Social History Observation Description Date Details (start date - stop date) Never Smoker NA - NA Tobacco Use/Smoking Question Answer Notes Patient is a nonsmoker Section Notes: There is no tobacco use. Alc ohol use is infrequent. Problems Problem Type SNOMED Code ICD Code Onset Dates Problem Status W/U Status Risk Notes Problem Digestive system symptom ([id number]) Other symptoms involving digestive system (787.99) Active confirmed Plan Of Treatment Future Test Test Name Order Date COLONOSCOPY 07/29/2011 Insurance Providers Payer Name Payer Address Payer Phone Subscriber Number Group Number Insured Name Patient Relationship to Insured Coverage Start Date Coverage End Date [facility] [address] [address] [place] [phone] [id number] EDWARD CHUNG Self - patient is the insured Medical (General) History Medical History History ICD Code elevated cholesterol diarrhea, with history of C. difficile i nfection plan deficiency anemia
== END 2024-11-07 10:10 | disposition home or self-care (01) ==
LOC: HO.HMCC 08:53
PROVIDERS: PCP Internal Medicine; Visit Provider Internal Medicine
DX: R26.89 Other abnormalities of gait and mobility (principal); F32.9 Major depressive disorder, single episode, unspecified; R41.3 Other amnesia; G62.9 Polyneuropathy, unspecified; E78.5 Hyperlipidemia, unspecified

== ENCOUNTER → 2024-11-07 08:52 | Outpatient (BNVA) | payer MEDICARE, SELFPAY | PROVIDERS: PCP Internal Medicine; Visit Provider Internal Medicine | DX: R26.89 Other abnormalities of gait and mobility (principal); F32.9 Major depressive disorder, single episode, unspecified; R41.3 Other amnesia; G62.9 Polyneuropathy, unspecified; E78.5 Hyperlipidemia, unspecified | CPT/HCPCS: 96127; 99212 ==

== ENCOUNTER 2024-12-23 08:32 | Outpatient (REF) | payer MEDICARE, SELFPAY ==
[2024-12-23 09:02] LABS: MANUAL DIFF FLAG NO
[2024-12-23 09:09] LABS: Hematocrit 34.7 % (37.0-47.0); Hemoglobin 11.0 g/dl (12.0-16.0); Imm Gran Abs Auto 0.02 X10*3/uL (0.00-0.03); Imm Gran Pct Auto 0.4 % (0.0-0.4); Lymphocytes Absolute Auto 1.3 X10*3/uL (1.2-4.9); Mean Corpuscular HGB Conc 31.7 g/dl (31.0-35.0); Mean Corpuscular Hemoglobin 29.1 pg (27.0-33.0); Mean Corpuscular Volume 91.8 fL (80.0-98.0); NRBC Abs Auto 0.000 X10*3/uL (0.0-0.012); NRBC Pct Auto 0.0 /100WBC (0.0-0.2); Platelet Count 182 X10*3/uL (160-400); Red Blood Count 3.78 X10*6/uL (4.20-5.50); White Blood Count 4.5 X10*3/uL (4.8-10.8)
[2024-12-23 09:22] LABS: Hemoglobin A1C 99.6476 umol/L; Total Hemoglobin (HGBA1C) 2989.0274 umol/L
[2024-12-23 09:47] LABS: Alanine Aminotransferase 13 U/L (0-31); Albumin Level 4.3 g/dL (3.5-5.0); Alkaline Phosphatase 59 U/L (39-117); Anion Gap 11 (12-20); Aspartate Amino Transferase 17 U/L (5-31); Blood Urea Nitrogen 17 mg/dL (9-16); Calcium 9.4 mg/dL (8.4-10.2); Carbon Dioxide 28 mmol/L (22-29); Chloride 106 mmol/L (96-108); Cholesterol 150 mg/dL (<200); Estimated Glomerular Filt Rate > 60; HDL Cholesterol 49 mg/dL (>40); Potassium 3.9 mmol/L (3.3-5.1); Sodium 141 mmol/L (135-145); Total Protein 6.9 g/dL (6.5-8.0); Triglycerides 135 mg/dL (<150)
== END 2024-12-23 08:33 | disposition home or self-care (01) ==
LOC: HO.LAB 08:32
PROVIDERS: PCP Internal Medicine; Visit Provider Internal Medicine
DX: E78.5 Hyperlipidemia, unspecified (principal); F32.9 Major depressive disorder, single episode, unspecified; E53.8 Deficiency of other specified B group vitamins; R73.9 Hyperglycemia, unspecified; G62.9 Polyneuropathy, unspecified; R06.09 Other forms of dyspnea
CPT/HCPCS: 36415; 80053; 80061; 83036; 84443; 85025

== ENCOUNTER 2024-12-27 12:58 | Outpatient (REF) | payer MEDICARE, SELFPAY ==
[2024-12-27 16:06] LABS: MANUAL DIFF FLAG NO
[2024-12-27 16:10] LABS: Hematocrit 33.6 % (37.0-47.0); Hemoglobin 11.0 g/dl (12.0-16.0); Imm Gran Abs Auto 0.01 X10*3/uL (0.00-0.03); Imm Gran Pct Auto 0.2 % (0.0-0.4); Lymphocytes Absolute Auto 1.2 X10*3/uL (1.2-4.9); Mean Corpuscular HGB Conc 32.7 g/dl (31.0-35.0); Mean Corpuscular Hemoglobin 29.5 pg (27.0-33.0); Mean Corpuscular Volume 90.1 fL (80.0-98.0); NRBC Abs Auto 0.000 X10*3/uL (0.0-0.012); NRBC Pct Auto 0.0 /100WBC (0.0-0.2); Platelet Count 194 X10*3/uL (160-400); Red Blood Count 3.73 X10*6/uL (4.20-5.50); White Blood Count 4.2 X10*3/uL (4.8-10.8)
[2024-12-27 16:46] LABS: Iron 41 mcg/dL (30-160); Percent Iron Saturation 14 % (15-50); Total Iron Binding Capacity 289 mcg/dL (228-428); Unsaturated Iron Binding 248 ug/dL
[2024-12-27 17:01] LABS: Folate 8.4 ng/mL (> or = 4.0); Vitamin B12 706 pg/mL (200-900)
== END 2024-12-27 12:59 | disposition home or self-care (01) ==
LOC: HO.HMGCLDS 12:58
PROVIDERS: PCP Internal Medicine; Visit Provider Internal Medicine
DX: E53.8 Deficiency of other specified B group vitamins (principal); E55.9 Vitamin D deficiency, unspecified; F32.9 Major depressive disorder, single episode, unspecified; R26.89 Other abnormalities of gait and mobility; Z13.31 Encounter for screening for depression; Z13.39 Encounter for screening examination for other mental health and behavioral disorders
CPT/HCPCS: 36415; 82306; 82607; 82746; 83540; 85025; 96127; 99212

== ENCOUNTER 2024-12-27 12:58 | Outpatient (AMB) | payer MEDICARE, SELFPAY ==
[2024-12-27 13:05] VITALS: BP 108/64; PULSE 76; RESP 18; O2SAT 97; BMI 29.6
--- NOTE | 2024-12-27 13:05 | MHC.PC.OV ---
Vital Signs 12/27/24 13:05 Height 5 ft 2 in Weight 162 lb BMI 29.6 BP 108/64 Blood Pressure Location Rt brachial Position Sitting Respiration 18 Pulse 76 Pulse Source Pulse Oximeter Pulse Oximetry (%) 97 Oxygen Delivery Method Room Air Intake Visit Reasons: 1 months f/up Intake Note: Pt is here today for 1 month follow up visit. Pt fell recently on the R side and has bruises she was going down the stairs. Pt's daughter also states that pt has hard time hearing from her R ear and headaches. Allergies naproxen (Aleve) Allergy (Severe, Verified 12/27/24 13:21) throat swelling Medication List - Last Reconciled 12/27/24 by Gabbie Perea MD cholecalciferol (vitamin D3) 25 mcg PO DAILY duloxetine 30 mg PO BID multivitamin 1 tab PO DAILY quetiapine 50 mg PO BEDTIME rosuvastatin 5 mg PO DAILY [vitamin b12 1,000] Tobacco use date assessed: 11/07/24 Fall risk assessment: 2 + Falls in past year Last assessed Fall Risk: 12/27/24 Dental Screening Dental Screen Date: 11/07/24 HPI 1 months f/up HPI Details Pt presents for f/u CHRONIC DEPRESSION AND ANXIETY. SHE HAS STARTED SEEING PSYCHIATRIC AND P AND STARTED TAKING SEROQUEL RECENTLY INCREASED TO 50 MG. Patient is feeling better calmer able to sleep at night. Her last month from metastatic renal CA. Patient complains of frequent fronal headaches usually starting in the afternoon for the last 2 months. She denies any change in the vision, weakness or numbness in extremities, nausea vomiting but reports chronic poor balance and generalized muscle weakness. Patient developed acute hearing loss in the right ear 2 weeks ago during upper respiratory infection. She denies any pain in the ear or discharge fever chills sore throat or congestion PFSH Medical History Vitamin D deficiency Burning pain Neuropathy Vitamin B 12 deficiency Lyme disease Pruritus Gallstones Abdominal pain Anxiety COVID-19 vaccine series completed History of venomous spider bite Cataract Abnormal colonoscopy Mammogram normal Depression Hyperlipidemia Surgical History Hx of colonoscopy Family History Father Diabetes Stroke Mother Heart problem History of breast cancer Daughter Graves disease Social History Housing: House Patient Tobacco Use Status: Never used Tobacco e-Cigarette/Vaping Use: Never Used Second Hand Smoke Exposure: No service: No Current occupational status: retired Current occupation: rt handed Cognitive needs: No Hearing needs: No Vision needs: Yes Questionnaire PHQ-9 Over the last 2 weeks, how often have you been bothered by any of the following problems? 1. Little interest or pleasure in doing things: more than half the days 2. Feeling down, depressed, or hopeless: nearly every day 3. Trouble falling or staying asleep, or sleeping too much: several days 4. Feeling tired or having little energy: nearly every day 5. Poor appetite or overeating: not at all 6. Feeling bad about yourself - or that you are a failure or have let yourself or your family down: nearly every day 7. Trouble concentrating on things, such as reading the newspaper or watching television: more than half the days 8. Moving or speaking so slowly that other people could have noticed. Or the opposite - being so fidgety or restless that you have been moving around a lot more than usual: nearly every day 9. Thoughts that you would be better off or of hurting yourself in some way: nearly every day Total score: 20 Depression Screening Interpretation: Positive (Patient is established with mud jack nozzleman and will be starting therapy) Depression Screening Follow-up: Existing condition and In treatment Depression Screening Done: Yes 89784 - PHQ-9 Billing: Yes Source: Developed by Drs. Pepito Quinn, Rosie Shields, Homar Rain and colleagues, with an educational tereso from [employer]. Thrive Questionnaire Date Thrive assessed: 12/12/24 I am a: Parent/Caregiver What is your living situation today?: I have a steady place to live Within the past 12 months, did the food you bought not last and you didn't have the money to get more?: Never true Within the past 12 months, did you worry whether your food would run out before you got money to buy more?: Never true Do you have trouble paying for medicines?: No Do you have trouble getting transportation to medical appointments?: No Do you have trouble paying your heating and electricity bill?: No Do you have trouble taking care of your child, family member or friend?: No Do you have trouble with day-to-day activities such as bathing, preparing meals, shopping, managing finances, etc.?: Yes Are you currently unemployed and looking for a job?: No Are you interested in more education?: I choose not to answer this question Please select the resources that you would like help with: None Currently or been in a relationship where the following occur: No concerns reported THRIVE Score: 0 ALICE-7 AMB Questionnaire ALICE-7 Date ALICE - 7 assessed: 12/27/24 Feeling nervous, anxious, or on edge: 3 = Nearly every day Not being able to stop or control worryin = Nearly every day Worrying too much about different things: 3 = Nearly every day Trouble relaxin = Nearly every day Being so restless that it is hard to sit still: 0 = Not at all Becoming easily annoyed or irritable: 0 = Not at all Source: Developed by Drs. Pepito Quinn, Rosie Shields, Homar Rain and colleagues, with an educational tereso from [employer]. ALICE-7 Assessment Billing ALICE-7 Assessment Tool: ALICE-7 Assessment 77225 Review of Systems Const All systems reviewed & are unremarkable except as noted in HPI and below Eyes Reports no additional complaints ENT Reports no additional complaints Card Reports no additional complaints Resp Reports no additional complaints GI Reports no additional complaints Reports no additional complaints Physical exam (Primary Care) Vital Signs: Last Vital Signs Pulse 76 12/27/24 13:05 Resp 18 12/27/24 13:05 BP 108/64 12/27/24 13:05 Pulse Ox 97 12/27/24 13:05 Oxygen Delivery Method Room Air 12/27/24 13:05 BMI result Body Mass Index 29.6 Tobacco/Smoking Status: Tobacco use Status Tobacco use date assessed 11/07/24 12/27/24 13:05 Patient Tobacco Use Status Never used Tobacco 12/27/24 13:05 e-Cigarette/Vaping Use Never Used 12/27/24 13:05 Depression Screening Interpretation: Positive (Patient is established with mud jack nozzleman and will be starting therapy) Depression Screening Follow-up: Existing condition and In treatment Thrive Assessment: Date of Thrive Assessment Date Thrive assessed 12/12/24 12/27/24 13:05 Currently or been in a relationship where the following occur: No concerns reported Const General: no acute distress HENMT Ears: TM's normal bilaterally and no periauricular adenopathy Face and sinus: Yes normal facial exam Neck Neck: Yes supple Resp Effort & Inspection: normal respiratory effort Auscultation: clear to auscultation bilaterally Cardio Rhythm: regular rhythm Heart sounds: S1 normal heart sound present and S2 normal heart sound present GI Inspection: Yes normal to inspection Palpation (GI): Soft to palpation Percussion: Yes normal to percussion Auscultation: normal bowel sounds Neuro Cranial nerves: Yes CN's II-XII intact bilaterally Gait exam (Neuro): Shuffling gait present Motor exam (neuro): 5/5 motor strength present throughout Romberg Test: Negative Coding Level of Care Code Est Pt Level 4 (55569) Diagnoses Vitamin B 12 deficiency E53.8 Vitamin D deficiency E55.9 Depression F32.9 Balance disorder R26.89 Additional Codes ALICE-7 Assessment Billing - ALICE-7 Assessment Tool: ALICE-7 Assessment 09430 ([id number]) PHQ-9 - 77917 - PHQ-9 Billing: Yes ([id number]) Assessment & Plan Assessment & Plan (1) Vitamin B 12 deficiency: Code(s): E53.8 - Deficiency of other specified B group vitamins Category: Medical Plan: Continue vitamin B12 supplement check the level (2) Vitamin D deficiency: Code(s): E55.9 - Vitamin D deficiency, unspecified Category: Medical Plan: Check vitamin-D level (3) Depression: Comment: Established with counselor will have evaluation but psychiatrist in mid November Code(s): F32.9 - Major depressive disorder, single episode, unspecified Category: Medical Plan: Continue current medications follow-up with psychiatry and counselor (4) Balance disorder: Comment: Due to lower extremity weakness and neuropathy Code(s): R26.89 - Other abnormalities of gait and mobility Category: Medical Plan: Patient will be scheduling physical therapy. She had brain MRI at [facility] and will obtain the report Orders: Orders IRON PROFILE Today E53.8 - Deficiency of other specified B group vitamins, E55.9 - Vitamin D deficiency, unspecified Vitamin B12 and Folate Today E53.8 - Deficiency of other specified B group vitamins, E55.9 - Vitamin D deficiency, unspecified Vitamin D 25-OH Total Today E53.8 - Deficiency of other specified B group vitamins, E55.9 - Vitamin D deficiency, unspecified Complete Blood Count Auto Diff Today E53.8 - Deficiency of other specified B group vitamins, E55.9 - Vitamin D deficiency, unspecified
--- OUTSIDE RECORDS SUMMARY | 2024-12-27 13:50 | XMS_ITS | Patient Health Record ---
Author Organization [facility] Address [address] [place] [address] Care Team Providers Care Project Scientist Name Role Phone Gabbie Perea MD Primary Care Provider Kris Louie Jr Unavailable [phone] Allergies Allergen (clinical drug ingredient) Drug/Non Drug Allergy documented on EMR Reaction Allergy Type Onset Date Status Aleve Unknown Drug Allergy Active Reason For Referral No Information Medications Medication SIG (Take, Route, Fr equency, Duration) Notes Start Date End Date Status Crestor Active Vitamin D-3 Active Theragran-M Active Probiotic Active [place] 3 Active Citalopram Hydrobromide Active Social History Tobacco Use: Social History Observation Description Date Details (start date - stop date) Never Smoker NA - NA Tobacco Use/Smoking Question Answer Notes Patient is a nonsmoker Section Notes: There is no tobacco use. Alc ohol use is infrequent. Problems Problem Type SNOMED Code ICD Code Onset Dates Problem Status W/U Status Risk Notes Problem Other symptoms involving digestive system (787.99) Active confirmed Plan Of Treatment Future Test Test Name Order Date COLONOSCOPY 07/29/2011 Insurance Providers Payer Name Payer Address Payer Phone Subscriber Number Group Number Insured Name Patient Relationship to Insured Coverage Start Date Coverage End Date [facility] [address] [address] [place] [phone] [id number] EDWARD CHUNG Self - patient is the insured Medical (General) History Medical History History ICD Code elevated cholesterol diarrhea, with history of C. difficile i nfection plan deficiency anemia
== END 2024-12-27 14:13 | disposition home or self-care (01) ==
LOC: HO.HMCC 12:59
PROVIDERS: PCP Internal Medicine; Visit Provider Internal Medicine
DX: E53.8 Deficiency of other specified B group vitamins (principal); E55.9 Vitamin D deficiency, unspecified; F32.9 Major depressive disorder, single episode, unspecified; R26.89 Other abnormalities of gait and mobility

== ENCOUNTER → 2025-03-02 17:50 | Outpatient (BNV) | payer MEDICARE, SELFPAY | PROVIDERS: PCP Internal Medicine; Visit Provider Radiology Diagnostic Radiology | DX: R29.818 Other symptoms and signs involving the nervous system (principal) | CPT/HCPCS: 70551 ==

== ENCOUNTER 2025-03-02 17:58 | Outpatient (REF) | payer MEDICARE, SELFPAY ==
--- NOTE | ~2025-03-02 | MR_ITS ---
EXAMINATION: MR BRAIN WITHOUT CONTRAST CLINICAL INFORMATION: Daily headaches or 9 months. No history of injury of fall. COMPARISON: CT head 11/13/2023 TECHNIQUE: MRI of the brain was obtained using routine sequences without contrast. FINDINGS: There is no restricted diffusion seen to suspect any acute ischemic changes. No magnetic susceptibility artifact either to suspect acute or chronic hemorrhagic products. There are punctate T2 signal changes in the subcortical white matter of both frontal lobes and left periventricular white matter of left frontal lobe, nonspecific. No edema seen. The lateral ventricles are symmetrical and normal size compared to patient's age. There is normal flow-void signal seen in major cerebral vasculature. The craniovertebral junction and the posterior fossa appears unremarkable. Paranasal sinuses and right mastoid air cells are well-aerated. There are T2 signal changes in bilateral dependent maxillary and mastoid sinuses. MR/MR head/brain wo con IMPRESSION: No acute intracranial process seen. Nonspecific T2 white matter signal changes in the deep white matter of frontal cerebral cortex. Electronically signed by: Pito Mendez MD 03/05/2025 07:34 AM EDT
--- OUTSIDE RECORDS SUMMARY | 2025-03-02 18:02 | XMS_ITS | Clinical Summary ---
Author Organization [facility] Address [address] [place] [id number] Phone Care Team Providers Care E Commerce Merchandising Coordinator Name Role Phone Gabbie Perea MD Primary Care Provider [phone] Allergies Active Allergy Reactions Criticality Noted Date Comments Naproxen Sodium Swelling 03/23/2017 Medications gabapentin (NEURONTIN) 300 MG capsule Take 300 mg by mouth daily. Active amitriptyline (ELAVIL) 25 MG tablet 01/23/2022 Active rosuvastatin (CRESTOR) 5 MG tablet 01/09/2022 Active DULoxetine (CYMBALTA) 30 MG capsule Take 1 capsule (30 mg total) by mouth daily. 30 capsule 3 02/04/2022 Active Social History Tobacco Use Types Packs/Day Years Used Date Smoking Tobacco: Never Assessed Education Answer Date Recorded Are you interested in more education? Not on cristel e 10/09/2022 Are you concerned about learning? Not on file 10/09/2022 No 10/09/2022 No 10/09/2022 Digital Access Answer Date Recorded No 11/07/2022 No 11/07/2022 No 11/07/2022 Reliable internet access at home? Not on file 11/07/2022 Device with a working camera? Not on file Comments Unknown Sex and Gender Information Value Date Recorded Sex Assigned at Female 04/30/2021 11:20 AM EST Legal Sex Female 10:08 PM EDT Gender Identity Female 04/30/2021 11:20 AM EST Sexual Orientation Straight 04/30/2021 11 :20 AM EST Plan of Treatment Health Maintenance Due Date Last Done Comments Adult Td,Tdap Booster 1945 LIPID PANEL 1945 DEPRESSION SCREENING 1957 SMOKING Hx and SMOKELESS TOBACCO SCREENING 1958 HEPATITIS C SCREENING 10/31/1963 PNEUMOCOCCAL VACCINES (50+ years) (1 of 1 - PCV) 10/31/1995 OSTEOPOROSIS SCREENING INITIAL (ONE-TIME) 2010 RSV VACCINE (1 - 1-dose 75+ series) 2020 INFLUENZA VACCINE (#1) 2025 , 04/21/2021, 02/15/2020, Additional history exists COVID-19 VACCINE ( season) 2025 03/19/2022, 04/14/2021, 08/29/2020, Additional history exists ZOSTER VACCINES Completed 01/03/2019, 11/01/2018 HEPATITIS A VACCINES Aged Out No long er eligible based on patient's age to complete this topic HIB VACCINES Aged Out No longer eligi ble based on patient's age to complete this topic MENINGOCOCCAL VACCINES (ACWY) Aged Out No longer eligible based on patient's age to complete this topic MENINGOCOCCAL VACCINES (B) Aged Out N o longer eligible based on patient's age to complete this topic Medical Devices Not on file Insurance MEDICARE REPLACEMENT MEDICARE PART A & B [facility] MEDICARE REPLACEMENT MEDICARE PART A & B [facility] MEDICARE REPLACEMENT MEDICARE PART A & B MEDICARE PART A & B [facility] MEDICARE REPLACEMENT MEDICARE PART A & B [facility] MEDICARE REPLACEMENT MEDICARE PART A & B MEDICARE PART A & B [facility] MEDICARE REPLACEMENT MEDICARE PART A & [place] [address] [place] [address] MEDICARE REPLACEMENT MEDICARE PART A & B Care Teams E Commerce Merchandising Coordinator Relationship Specialty Start Date End Date Gabbie Perea MD [address] [place] [id number] PCP - General Internal Medicine 04/30/21 Additional Source Comments The information contained in this document represents components of the legal health record. It is not the complete legal health record.[facility]
== END 2025-03-02 17:59 | disposition home or self-care (01) ==
LOC: HO.MRI 17:58
PROVIDERS: PCP Internal Medicine; Visit Provider Internal Medicine
DX: R51.9 Headache, unspecified (principal); R29.818 Other symptoms and signs involving the nervous system
CPT/HCPCS: 70551

== ENCOUNTER 2025-03-30 11:57 | Outpatient (AMB) | payer MEDICARE, SELFPAY ==
--- NOTE | 2025-03-30 12:16 | MHC.PC.OV ---
Vital Signs 03/30/25 12:20 Height 5 ft 2 in Weight 160 lb BMI 29.3 BP 110/76 Blood Pressure Location Rt brachial Position Sitting Respiration 16 Pulse 78 Pulse Source Pulse Oximeter Temp 98.2 F Temp Source Oral Pulse Oximetry (%) 97 Oxygen Delivery Method Room Air Intake Visit Reasons: PE - see comments Intake Note: Pt is here today for PE. Allergies naproxen (Aleve) Allergy (Severe, Verified 03/30/25 12:31) throat swelling Medication List - Last Reconciled 03/30/25 by Gabbie Perea MD cholecalciferol (vitamin D3) 25 mcg PO DAILY duloxetine mg PO fluoxetine 40 mg PO DAILY [iron PO] multivitamin 1 tab PO DAILY rosuvastatin 5 mg PO DAILY [vitamin b12 1,000] Tobacco use date assessed: 03/30/25 Fall risk assessment: 2 + Falls in past year Last assessed Fall Risk: 03/30/25 Dental Screening Dental Screen Date: 11/07/24 HPI PE - see comments HPI Details Pt presents for PE. Pt follows up with psychiatrist for medical management of depression. Patient lives with her daughter most of the time as she is not able to care for herself. Patient spends most days sitting on a recliner. She reports erratic sleeping pattern. She was prescribed quetiapine but was feeling sluggish and declined taking it. Patient denies any change in appetite. She is grieving her who in November from a cancer. [facility] Medical History Vitamin D deficiency Burning pain Neuropathy Vitamin B 12 deficiency Lyme disease Pruritus Gallstones Abdominal pain Anxiety COVID-19 vaccine series completed History of venomous spider bite Cataract Abnormal colonoscopy Mammogram normal Depression Hyperlipidemia Surgical History Hx of colonoscopy Family History Father Diabetes Stroke Mother Heart problem History of breast cancer Daughter Graves disease Social History Housing: House Patient Tobacco Use Status: Never used Tobacco e-Cigarette/Vaping Use: Never Used Second Hand Smoke Exposure: No service: No Current occupational status: retired Current occupation: rt handed Cognitive needs: No Hearing needs: No Vision needs: Yes Questionnaire PHQ-9 Over the last 2 weeks, how often have you been bothered by any of the following problems? 1. Little interest or pleasure in doing things: more than half the days 2. Feeling down, depressed, or hopeless: nearly every day 3. Trouble falling or staying asleep, or sleeping too much: several days 4. Feeling tired or having little energy: nearly every day 5. Poor appetite or overeating: not at all 6. Feeling bad about yourself - or that you are a failure or have let yourself or your family down: nearly every day 7. Trouble concentrating on things, such as reading the newspaper or watching television: more than half the days 8. Moving or speaking so slowly that other people could have noticed. Or the opposite - being so fidgety or restless that you have been moving around a lot more than usual: nearly every day 9. Thoughts that you would be better off or of hurting yourself in some way: nearly every day Total score: 20 Depression Screening Interpretation: Positive (Patient is established with regional psychiatric director) Depression Screening Follow-up: Existing condition and In treatment Depression Screening Done: Yes Source: Developed by Drs. Pepito Quinn, Rosie Shields, Homar Rain and colleagues, with an educational tereso from [employer] Thrive Questionnaire Date Thrive assessed: 12/12/24 I am a: Parent/Caregiver What is your living situation today?: I have a steady place to live Within the past 12 months, did the food you bought not last and you didn't have the money to get more?: Never true Within the past 12 months, did you worry whether your food would run out before you got money to buy more?: Never true Do you have trouble paying for medicines?: No Do you have trouble getting transportation to medical appointments?: No Do you have trouble paying your heating and electricity bill?: No Do you have trouble taking care of your child, family member or friend?: No Do you have trouble with day-to-day activities such as bathing, preparing meals, shopping, managing finances, etc.?: Yes Are you currently unemployed and looking for a job?: No Are you interested in more education?: I choose not to answer this question Please select the resources that you would like help with: None Currently or been in a relationship where the following occur: No concerns reported THRIVE Score: 0 ALICE-7 AMB Questionnaire ALICE-7 Date ALICE - 7 assessed: 12/27/24 Feeling nervous, anxious, or on edge: 3 = Nearly every day Not being able to stop or control worryin = Nearly every day Worrying too much about different things: 3 = Nearly every day Trouble relaxin = Nearly every day Being so restless that it is hard to sit still: 0 = Not at all Becoming easily annoyed or irritable: 0 = Not at all Source: Developed by Drs. Pepito Quinn, Rosie Shields, Homar Rain and colleagues, with an educational tereso from [employer] Review of Systems Const All systems reviewed & are unremarkable except as noted in HPI and below Eyes Reports no additional complaints ENT Reports no additional complaints Card Reports no additional complaints Resp Reports no additional complaints GI Reports no additional complaints Reports no additional complaints Physical exam (Primary Care) Vital Signs: Last Vital Signs Temp 98.2 F 03/30/25 12:20 Pulse 78 03/30/25 12:20 Resp 16 03/30/25 12:20 BP 110/76 03/30/25 12:20 Pulse Ox 97 03/30/25 12:20 Oxygen Delivery Method Room Air 03/30/25 12:20 BMI result Body Mass Index 29.3 Tobacco/Smoking Status: Tobacco use Status Tobacco use date assessed 03/30/25 03/30/25 12:20 Patient Tobacco Use Status Never used Tobacco 03/30/25 12:17 e-Cigarette/Vaping Use Never Used 03/30/25 12:17 PHQ-9: PHQ-9 Score PHQ-9: Total score 20 03/30/25 12:53 Depression Screening Interpretation: Positive (Patient is established with regional psychiatric director) Depression Screening Follow-up: Existing condition and In treatment Thrive Assessment: Date of Thrive Assessment Date Thrive assessed 12/12/24 03/30/25 12:17 Currently or been in a relationship where the following occur: No concerns reported Const General: no acute distress HENMT Head: Yes normal to inspection Face and sinus: Yes normal facial exam Throat: Yes posterior oropharynx normal Eyes General: appearance normal, both eyes and all related structures Neck Neck: Yes no lymphadenopathy and Yes supple Resp Effort & Inspection: normal respiratory effort Auscultation: clear to auscultation bilaterally Cardio Rhythm: regular rhythm Heart sounds: S1 normal heart sound present and S2 normal heart sound present GI Inspection: Yes normal to inspection Palpation (GI): Soft to palpation Percussion: Yes normal to percussion Auscultation: normal bowel sounds Coding Level of Care Code Est Pt Prev Care >65y(26184) Diagnoses Depression F32.9 Hyperlipidemia E78.5 Annual physical exam Z00.00 Assessment & Plan Assessment & Plan (1) Depression: Comment: Established with counselor will have evaluation but psychiatrist in mid November Code(s): F32.9 - Major depressive disorder, single episode, unspecified Category: Medical Plan: Patient is tapering down duloxetine and starting fluoxetine. She is established with prescriber and a counselor. (2) Hyperlipidemia: Comment: cont Crestor Code(s): E78.5 - Hyperlipidemia, unspecified Category: Medical Plan: Continue crestor (3) Annual physical exam: Code(s): Z00.00 - Encounter for general adult medical examination without abnormal findings Category: Medical Plan: Well-balanced diet increase physical activity discussed with the patient. She will return for physical in 1 year with the labs before Orders: Orders Complete Blood Count Auto Diff Today D64.9 - Anemia, unspecified IRON PROFILE Today D64.9 - Anemia, unspecified TSH reflex Free T4 1 Year E55.9 - Vitamin D deficiency, unspecified, Z00.00 - Encounter for general adult medical examination without abnormal findings Vitamin D 25-OH Total 1 Year E55.9 - Vitamin D deficiency, unspecified, Z00.00 - Encounter for general adult medical examination without abnormal findings UA w Microscopic 1 Year E55.9 - Vitamin D deficiency, unspecified, Z00.00 - Encounter for general adult medical examination without abnormal findings Comprehensive [place]. Panel Fast 1 Year E55.9 - Vitamin D deficiency, unspecified, Z00.00 - Encounter for general adult medical examination without abnormal findings Complete Blood Count Auto Diff 1 Year E55.9 - Vitamin D deficiency, unspecified, Z00.00 - Encounter for general adult medical examination without abnormal findings Lipid Panel 1 Year E55.9 - Vitamin D deficiency, unspecified, Z00.00 - Encounter for general adult medical examination without abnormal findings
[2025-03-30 12:20] VITALS: BP 110/76; PULSE 78; RESP 16; TEMP 36.8; O2SAT 97; BMI 29.3
--- OUTSIDE RECORDS SUMMARY | 2025-03-30 14:43 | XMS_ITS | Clinical Summary ---
Author Organization [facility] Address [address] [place] [id number] Phone Care Team Providers Care Oil Tanker Captain Name Role Phone Gabbie Perea MD Primary Care Provider [phone] Allergies Active Allergy Reactions Criticality Noted Date [...] MEDICARE REPLACEMENT MEDICARE PART A & B [facility] MEDICARE REPLACEMENT MEDICARE PART A & B [facility] MEDICARE REPLACEMENT MEDICARE PART A & B MEDICARE PART A & B [facility] MEDICARE REPLACEMENT MEDICARE PART A & B [facility] MEDICARE REPLACEMENT MEDICARE PART A & B MEDICARE PART A & B [facility] MEDICARE REPLACEMENT MEDICARE PART A & [place] [address] [address] [place] [address] MEDICARE REPLACEMENT MEDICARE PART A & B Care Teams Oil Tanker Captain Relationship Specialty Start Date End Date Gabbie Perea MD [address] [facility] [place] [id number] PCP - General Internal Medicine 04/30/21 Additional Source Comments The information contained in this document represents components of the legal health record. It is not the complete legal health record.[facility]
--- OUTSIDE RECORDS SUMMARY | 2025-03-30 14:43 | XMS_ITS | Patient Health Record ---
Author Organization [facility] Address [address] [place] [address] Care Team Providers Care Hydrostatic Tubing Tester Name Role Phone Gabbie Perea MD Primary Care Provider Kris Louie Jr Unavailable Allergies Allergen (clinical drug ingredient) Drug/Non Drug Allergy documented on EMR Reaction Allergy Type Onset Date Status Aleve Unknown Drug Allergy Active Reason For Referral No Information Medications Medication SIG (Take, Route, Fr equency, Duration) Notes Start Date End Date Status Crestor Active Vitamin D-3 Active Theragran-M Active Probiotic Active [place] 3 Active Citalopram Hydrobromide Active Social History [...] Status Risk Notes Problem Digestive system symptom (344499398) Other symptoms involving digestive system (787.99) Active confirmed Plan Of Treatment Future Test Test Name Order Date COLONOSCOPY 07/29/2011 Insurance Providers Payer Name Payer Address Payer Phone Subscriber Number Group Number Insured Name Patient Relationship to Insured Coverage Start Date Coverage End Date [facility] [address] [address] [place] [phone] [id number] EDWARD CHUNG Self - patient is the insured Medical (General) History Medical History History ICD Code elevated cholesterol diarrhea, with history of C. difficile i nfection plan deficiency anemia
== END 2025-03-30 13:14 | disposition home or self-care (01) ==
LOC: HO.HMCC 11:58
PROVIDERS: PCP Internal Medicine; Visit Provider Internal Medicine
DX: F32.9 Major depressive disorder, single episode, unspecified (principal); E78.5 Hyperlipidemia, unspecified; Z00.00 Encounter for general adult medical examination without abnormal findings

== ENCOUNTER 2025-03-30 11:57 | Outpatient (REF) | payer MEDICARE, SELFPAY ==
[2025-03-30 16:03] LABS: MANUAL DIFF FLAG NO
[2025-03-30 16:19] LABS: Hematocrit 38.6 % (37.0-47.0); Hemoglobin 12.9 g/dl (12.0-16.0); Imm Gran Abs Auto 0.01 X10*3/uL (0.00-0.03); Imm Gran Pct Auto 0.2 % (0.0-0.4); Lymphocytes Absolute Auto 1.2 X10*3/uL (1.2-4.9); Mean Corpuscular HGB Conc 33.4 g/dl (31.0-35.0); Mean Corpuscular Hemoglobin 28.2 pg (27.0-33.0); Mean Corpuscular Volume 84.3 fL (80.0-98.0); NRBC Abs Auto 0.000 X10*3/uL (0.0-0.012); NRBC Pct Auto 0.0 /100WBC (0.0-0.2); Platelet Count 213 X10*3/uL (160-400); Red Blood Count 4.58 X10*6/uL (4.20-5.50); White Blood Count 4.9 X10*3/uL (4.8-10.8)
[2025-03-30 17:22] LABS: Iron 65 mcg/dL (30-160); Percent Iron Saturation 20 % (15-50); Total Iron Binding Capacity 319 mcg/dL (228-428); Unsaturated Iron Binding 254 ug/dL
== END 2025-03-30 11:58 | disposition home or self-care (01) ==
LOC: HO.HMGCLDS 11:57
PROVIDERS: PCP Internal Medicine; Visit Provider Internal Medicine
DX: Z00.00 Encounter for general adult medical examination without abnormal findings (principal); D64.9 Anemia, unspecified; F32.9 Major depressive disorder, single episode, unspecified; E78.5 Hyperlipidemia, unspecified; Z79.899 Other long term (current) drug therapy
CPT/HCPCS: 36415; 83540; 85025; 99397